=== PATIENT | male | born 1995 | race African-American/Black ===

== ENCOUNTER 2024-11-04 04:39 | Emergency (ER) | payer MEDICAID ==
[~2024-11-04] VITALS: Ht 175.3 cm; Wt 63.5 kg
[2024-11-04 05:01] VITALS: BP 102/77; RESP 16; TEMP 97.8; O2SAT 100
[2024-11-04 05:37] VITALS: PULSE 114
--- NOTE | 2024-11-04 05:40 | ED.PDOC ---
Musculoskeletal HPI Comments 29-YEAR-OLD MALE PRESENTS TO ER WITH COMPLAINTS OF BILATERAL LEG PAIN X3 WEEKS. PATIENT REPORTS HE HAS BEEN EXPERIENCING INTERMITTENT PAIN TO BILATERAL LEGS THAT STARTED AFTER DANCING THREE WEEKS AGO. HE REPORTS 3/10 BURNING PAIN TO BILATERAL LEGS. DENIES USE OF MEDICATIONS FOR CURRENT SYMPTOMS. PATIENT ID ESENTS TO ER AMBULATORY ON ARRIVAL, WITH STEADY GAIT, IN NO DISTRESS AND STATES THE MASSAGES DO TAKE AWAY HIS LEG PAIN. DENIES FEVER, SHORTNESS OF BREATH, CALF PAIN, SKIN CHANGES, FALLS/INJURY OR ANY FURTHER SYMPTOMS/COMPLAINTS Chief Complaint: Lower Extremity Time Seen by MD: 05:30 Primary Care Provider: BIPIN Reviewed Notes: Nurses Notes, Medications, Allergies Allergies: Coded Allergies: NO KNOWN ALLERGIES (Unverified , 01/10/10) Information Source: Patient Mode of Arrival: Ambulatory Past Medical History PAST MEDICAL HISTORY: Anxiety Surgical History: Denies all surgeries Family History Family History: Unknown Social History Smoker: Non-Smoker Alcohol: Denies ETOH Use Drugs: Denies Drug Use Lives In: Home Constitutional: denies: chills, diaphoresis, fatigue, fever, malaise, sweats, weakness, others EENTM: denies: blurred vision, double vision, ear bleeding, ear discharge, ear drainage, ear pain, ear ringing, eye pain, eye redness, hearing loss, mouth pain, mouth swelling, nasal discharge, nose bleeding, nose congestion, nose pain, photophobia, tearing, throat pain, throat swelling, voice changes, others Respiratory: denies: cough, hemoptysis, orthopnea, SOB at rest, shortness of breath, SOB with excertion, stridor, wheezing, others Cardiovascular: denies: chest pain, dizzy spells, diaphoresis, Dyspnea on exertion, edema, irregular heart beat, left arm pain, lightheadedness, palpitations, PND, syncope, others Gastrointestinal: denies: abdomen distended, abdominal pain, blood streaked bowels, constipated, diarrhea, dysphagia, difficulty swallowing, hematemesis, melena, nausea, poor appetite, poor fluid intake, rectal bleeding, rectal pain, vomiting, others Genitourinary: denies: burning, dysuria, flank pain, frequency, hematuria, incontinence, penile discharge, penile sore, pain, testicle pain, testicle swelling, urgency, others Neurological: denies: dizziness, fainting, headache, left sided numbness, left sided weakness, numbness, paresthesia, pre-existing deficit, right sided numbness, right sided weakness, seizure, speech problems, tingling, tremors, weakness, others Musculoskeletal: reports: others ( STATED IN HPI) Integumetry: denies: bruises, change in color, change in hair/nails, dryness, laceration, lesions, lumps, rash, wounds, others Allergic/Immunocompromised: denies: Difficulty Healing, Frequent Infections, Hives, Itching, others Hematologic/Lymphatic: denies: anemia, blood clots, easy bleeding, easy bruising, swollen glands, others Endocrine: denies: excessive hunger, excessive sweating, excessive thirst, excessive urination, flushing, intolerance to cold, intolerance to heat, unexplained weight gain, unexplained weight loss, others Psychiatric: denies: anxiety, bipolar disorder, depression, hopeless, panic disorder, schizophrenia, sleepless, suicidal, others Physical Exam General Appearance: No Apparent Distress HEENT: PERRL/EOMI Neck: Full Range of Motion, Non-Tender, Normal Respiratory: Chest Non-Tender, Lungs Clear, No Accessory Muscle Use, No Respiratory Distress, Normal Breath Sounds Cardiovascular: No Murmur, No Gallop, Regular Rate/Rhythm Breast Exam: Deferred Gastrointestinal: NOT DONE Genitalia: Deferred Pelvic: Deferred Rectal: Deferred Extremities: No calf tenderness, Normal capillary refill, Normal range of motion, No pedal edema Musculoskeletal : Extremity Location: Leg (NO TTP/SKIN CHANGES TO BILATERAL LEGS NOTED. GAIT INTACT WITHOUT ABNORMALITY) Neurologic: Alert, No Motor Deficits, Normal Affect, Normal Mood, No Sensory Deficits Cerebellar Function: Normal Reflexes: Normal Skin: Dry, Normal Color, Warm Peripheral Pulses: 2+ femoral (R), 2+ femoral (L), 2+ dorsalis pedis (R), 2+ do rsalis pedis (L), 2+ Radial (R), 2+ Radial (L), 2+ Brachial (R), 2+ Brachial (L) Lymphatic: No Adenopathy Was a procedure done? Was a procedure done?: No Sedation Sedation?: No Differential Diagnosis EXT Differential Diagnosis: Cellulitis, Deep Vein Thrombosis, Fracture, Neurovascular injury X-Ray, Labs, Meds, VS Vital Signs Date Time Temp Pulse Resp B/P (MAP) Pulse Ox O2 Delivery O2 Flow Rate FiO2 6/25/25 05:37 114 11/04/24 05:01 97.8 131 16 102/77 (85) 100 97.8 ADVISED TO DRINK PLENTY OF FLUIDS ADVISED TO FOLLOW UP WITH PCP IN 1-2 DAYS PATIENT VERBALIZED UNDERSTANDING AND AGREEABLE WITH CURRENT PLAN OF CARE ADVISED TO RETURN TO ER IMMEDIATELY IF SYMPTOMS WORSE Time of 1ST Reevaluation: 05:20 Reevaluation 1ST: N/A Patient Education/Counseling: Diagnosis, Treatment, Prognosis, Need For Follow Up Family Education/Counseling: No Family Present Departure 1 Departure Time of Disposition: 05:32 Impression: Primary Impression: Musculoskeletal pain of left lower extremity Additional Impression: Musculoskeletal pain of right lower extremity Disposition: 01 HOME / SELF CARE / HOMELESS Condition: Stable Discharged With: Self Critical Care Note Critical Care Time?: No Stability Stability form required: No Heart Score Heart Score: Heart Score Response (Comments) Value History N/A 0 EKG N/A 0 Age N/A 0 Risk Factors N/A 0 Troponin N/A 0 Total 0 FATOUMATA SANCHEZ Nov 04, 2024 05:40
== END 2024-11-04 06:00 | disposition home or self-care (01) ==
LOC: ER 04:39
DX: M79.604 Pain in right leg (principal); M79.605 Pain in left leg; M79.89 Other specified soft tissue disorders

== ENCOUNTER 2024-11-08 05:57 | Emergency (ER) | payer MEDICAID ==
[~2024-11-08] VITALS: Ht 177.8 cm; Wt 48.0 kg
--- NOTE | 2024-11-08 06:44 | ED.PDOC ---
History of Present Illness HPI Comments 29-year-old male presents with a chief complaint of neuropathy. Patient states that he is experiencing a burning sensation in his legs and feet bilaterally. Patient also reports that he is experiencing increase in urination and excessive thirst. Chief Complaint: Lower Extremity Time Seen by MD: 06:19 Primary Care Provider: BIPIN Azevedo Notes: Medications, Allergies Allergies: Coded Allergies: NO KNOWN ALLERGIES (Unverified , 01/10/10) Information Source: Patient Mode of Arrival: EMS Severity: Moderate Timing: Hours Duration: Since onset Prehospital treatment: Support Services Tech Past Medical History PAST MEDICAL HISTORY: Anxiety Surgical History: Denies all surgeries Family History Family History: Unknown Social History Smoker: Non-Smoker Alcohol: Heavy Drugs: Denies Drug Use Lives In: Home Constitutional: denies: chills, diaphoresis, fatigue, fever, malaise, sweats, weakness, others EENTM: denies: blurred vision, double vision, ear bleeding, ear discharge, ear drainage, ear pain, ear ringing, eye pain, eye redness, hearing loss, mouth pain, mouth swelling, nasal discharge, nose bleeding, nose congestion, nose pain, photophobia, tearing, throat pain, throat swelling, voice changes, others Respiratory: denies: cough, hemoptysis, orthopnea, SOB at rest, shortness of breath, SOB with excertion, stridor, wheezing, others Cardiovascular: denies: chest pain, dizzy spells, diaphoresis, Dyspnea on exertion, edema, irregular heart beat, left arm pain, lightheadedness, palpitations, PND, syncope, others Gastrointestinal: denies: abdomen distended, abdominal pain, blood streaked bowels, constipated, diarrhea, dysphagia, difficulty swallowing, hematemesis, melena, nausea, poor appetite, poor fluid intake, rectal bleeding, rectal pain, vomiting, others Genitourinary: denies: burning, dysuria, flank pain, frequency, hematuria, incontinence, penile discharge, penile sore, pain, testicle pain, testicle swelling, urgency, others Neurological: denies: dizziness, fainting, headache, left sided numbness, left sided weakness, numbness, paresthesia, pre-existing deficit, right sided numbness, right sided weakness, seizure, speech problems, tingling, tremors, weakness, others Musculoskeletal: reports: muscle pain; denies: back pain, gout, joint pain, joint swelling, muscle stiffness, neck pain, others Integumetry: denies: bruises, change in color, change in hair/nails, dryness, laceration, lesions, lumps, rash, wounds, others Allergic/Immunocompromised: denies: Difficulty Healing, Frequent Infections, Hives, Itching, others Hematologic/Lymphatic: denies: anemia, blood clots, easy bleeding, easy bruising, swollen glands, others Endocrine: denies: excessive hunger, excessive sweating, excessive thirst, excessive urination, flushing, intolerance to cold, intolerance to heat, unexplained weight gain, unexplained weight loss, others Psychiatric: denies: anxiety, bipolar disorder, depression, hopeless, panic disorder, schizophrenia, sleepless, suicidal, others All Other Systems: Reviewed and Negative Physical Exam General Appearance: Moderate Distress, Normal HEENT: Normal ENT Inspection, Pharynx Normal, TMs Normal Neck: Full Range of Motion, Non-Tender, Normal, Normal Inspection Respiratory: Chest Non-Tender, Lungs Clear, No Accessory Muscle Use, No Respiratory Distress, Normal Breath Sounds Cardiovascular: No Edema, No JVD, No Murmur, No Gallop, Normal Peripheral Pulses, Regular Rate/Rhythm Breast Exam: Deferred Gastrointestinal: No Organomegaly, Non Tender, No Pulsatile Mass, Normal Bowel Sounds, Soft Genitalia: Deferred Pelvic: Deferred Rectal: Deferred Extremities: No calf tenderness, Normal capillary refill, Normal inspection, Normal range of motion, Non-tender, No pedal edema Musculoskeletal : Apperance: Normal Neurologic: Alert, mri ct tech II-XII nml as Tested, No Motor Deficits, Normal Affect, Normal Mood, No Sensory Deficits Cerebellar Function: Normal Reflexes: Normal Skin: Dry, Normal Color, Warm Peripheral Pulses: 3+ Radial (R), 3+ Radial (L) Lymphatic: No Adenopathy Was a procedure done? Was a procedure done?: No Differential Dx Considerations may include: Alcohol abuse Dehydration X-Ray, Labs, Meds, VS Vital Signs Date Time Temp Pulse Resp B/P (MAP) Pulse Ox O2 Delivery O2 Flow Rate FiO2 11/08/24 06:05 98.5 112 16 114/78 (90) 99 98.5 Lab Test 11/08/24 06:40 Range/Units Sodium Level 139 136-145 mmol/L Potassium Level 2.5 *L 3.5-5.1 mmol/L Chloride Level 92 L 98-107 mmol/L Carbon Dioxide Level 22 20-31 mmol/L Anion Gap 25 H 5-15 Blood Urea Nitrogen 6 L 9-23 mg/dL Creatinine 0.71 0.700-1.30 mg/dL Glomerular Filtration Rate Calc 127 >90 mL/min BUN/Creatinine Ratio 8.5 L 10.0-20.0 Serum Glucose 102 74-106 mg/dL Calcium Level 8.8 8.7-10.4 mg/dL Plasma/Serum Blood Alcohol 315.7 H <10 mg/dL Patient alert. Alcohol abuse. Vitals stable. Saturation pristine on room air. Ambulating. No sign of any distress. No leg swelling. Heart rate on clinical assessment was within normal limits. Establish intravenous access. Was given fluids. Respiratory rate within normal limits. Counseled patient on effects of drinking for 15 minutes. Potassium is low. Was given potassium. Blood alcohol level elevated. Was told to follow up with his primary care physician. Was told to come back if there is any problem. Time of 1ST Reevaluation: 06:49 Reevaluation 1ST: Improved Patient Education/Counseling: Diagnosis, Treatment, Need For Follow Up Family Education/Counseling: No Family Present SEPSIS Sepsis Screen Date sepsis recognized/suspect: Nov 08, 2024 Time Sepsis recognized/suspect: 604 Recent Procedure: No Respiratory Rate >20: No Heart Rate >90: No Temp<36 C (96.8 F) or >38.3 C: No SBP <90 or MAP <65 mmHG: No New Acute Mental Status Change: No Is the patient on CPAP, BIPAP,: No Vital Signs Date Time Temp Pulse Resp B/P (MAP) Pulse Ox O2 Delivery O2 Flow Rate FiO2 11/08/24 06:05 98.5 112 16 114/78 (90) 99 98.5 Departure 1 Departure Time of Disposition: 06:52 Impression: Primary Impression: Hypokalemia Additional Impressions: Dehydration Alcohol abuse Disposition: 01 HOME / SELF CARE / HOMELESS Condition: Good Discharged With: Self Critical Care Note Critical Care Time?: No Stability Stability form required: No Heart Score Heart Score: Heart Score Response (Comments) Value History N/A 0 EKG N/A 0 Age N/A 0 Risk Factors N/A 0 Troponin N/A 0 Total 0 I personally scribed for CHANTALE BUCHANAN MD ([email or web address]) on 11/08/24 at 06:43. Electronically submitted by Prashanth Titus ([email or web address]). CHANTALE BUCHANAN MD Nov 08, 2024 06:43
[2024-11-08 07:12] LABS: Sodium 139 mmol/L (136-145)
[2024-11-08 07:13] LABS: Anion Gap 25 (5-15); Carbon Dioxide 22 mmol/L (20-31)
[2024-11-08 07:14] LABS: Calcium 8.8 mg/dL (8.7-10.4)
[2024-11-08 07:18] LABS: Glucose 102 mg/dL (74-106)
[2024-11-08 07:25] LABS: Chloride 92 mmol/L (98-107); Potassium 2.5 mmol/L (3.5-5.1)
[2024-11-08 07:29] LABS: BUN/Creatinine Ratio 8.5 (10.0-20.0); Blood Urea Nitrogen 6 mg/dL (9-23)
[2024-11-08 07:30] LABS: Blood Alcohol 315.7 mg/dL (<10)
[2024-11-08] MEDS: SODIUM CHLORIDE 0.9% 1,000 ML IV ONE (08:00)
[2024-11-08] MEDS: POTASSIUM EFFERVESENT TAB 25 MEQ PO ONE (08:00)
[2024-11-08 08:17] VITALS: BP 102/75; PULSE 123; RESP 16; TEMP 97.7; O2SAT 100
== END 2024-11-08 09:37 | disposition home or self-care (01) ==
LOC: ER 05:57 → EDBD 05:57 → ER 09:37
DX: E87.6 Hypokalemia (principal); E86.0 Dehydration; F10.10 Alcohol abuse, uncomplicated; F41.9 Anxiety disorder, unspecified; Y90.8 Blood alcohol level of 240 mg/100 ml or more
CPT/HCPCS: 36415; 80048; 80320; 96360; 99283; J7030

== ENCOUNTER 2024-11-15 02:12 | Emergency (ER) | payer MEDICAID ==
[~2024-11-15] VITALS: Ht 177.8 cm; Wt 63.7 kg
--- NOTE | 2024-11-15 02:42 | ED.PDOC ---
History of Present Illness HPI Comments 29-year-old male brought in by EMS complaining of ER bilateral foot pain. Patient states he has been having burning pain on the soles of both feet for the past 3 weeks. Patient states pain radiates to his lower legs especially when he lays down. Patient was seen here a week ago for similar complaints, diagnosed with hypokalemia and alcohol abuse. Patient admits to have been drinking alcohol again today. Patient states he has nausea and vomiting on a daily basis. He denies abdominal pain. Patient states he has been taking Tylenol and ibuprofen for the foot pain without relief. Chief Complaint: Lower Extremity Time Seen by MD: 02:41 Primary Care Provider: BIPIN Azevedo Notes: Veterinary X Ray Operator Notes Allergies: Coded Allergies: NO KNOWN ALLERGIES (Unverified , 01/10/10) Information Source: Patient Mode of Arrival: EMS Severity: Moderate Timing: Weeks Duration: Intermittent Past Medical History PAST MEDICAL HISTORY: Anxiety Surgical History: Denies all surgeries Family History Family History: Unknown Social History Smoker: Non-Smoker Alcohol: Heavy Drugs: Denies Drug Use Lives In: Home Constitutional: denies: chills, diaphoresis, fatigue, fever, malaise, sweats, weakness, others EENTM: denies: blurred vision, double vision, ear bleeding, ear discharge, ear drainage, ear pain, ear ringing, eye pain, eye redness, hearing loss, mouth pain, mouth swelling, nasal discharge, nose bleeding, nose congestion, nose pain, photophobia, tearing, throat pain, throat swelling, voice changes, others Respiratory: denies: cough, hemoptysis, orthopnea, SOB at rest, shortness of breath, SOB with excertion, stridor, wheezing, others Cardiovascular: denies: chest pain, dizzy spells, diaphoresis, Dyspnea on exertion, edema, irregular heart beat, left arm pain, lightheadedness, palpitations, PND, syncope, others Gastrointestinal: denies: abdomen distended, abdominal pain, blood streaked bowels, constipated, diarrhea, dysphagia, difficulty swallowing, hematemesis, melena, nausea, poor appetite, poor fluid intake, rectal bleeding, rectal pain, vomiting, others Genitourinary: denies: burning, dysuria, flank pain, frequency, hematuria, incontinence, penile discharge, penile sore, pain, testicle pain, testicle swelling, urgency, others Neurological: denies: dizziness, fainting, headache, left sided numbness, left sided weakness, numbness, paresthesia, pre-existing deficit, right sided numbness, right sided weakness, seizure, speech problems, tingling, tremors, weakness, others Musculoskeletal: reports: muscle pain (Bilateral leg pain), others (Burning pain soles of both feet); denies: back pain, gout, joint pain, joint swelling, muscle stiffness, neck pain Integumetry: denies: bruises, change in color, change in hair/nails, dryness, laceration, lesions, lumps, rash, wounds, others Allergic/Immunocompromised: denies: Difficulty Healing, Frequent Infections, Hives, Itching, others Hematologic/Lymphatic: denies: anemia, blood clots, easy bleeding, easy bruising, swollen glands, others Endocrine: denies: excessive hunger, excessive sweating, excessive thirst, excessive urination, flushing, intolerance to cold, intolerance to heat, unexplained weight gain, unexplained weight loss, others Psychiatric: denies: anxiety, bipolar disorder, depression, hopeless, panic disorder, schizophrenia, sleepless, suicidal, others Physical Exam General Appearance: No Apparent Distress HEENT: Other (Pupils and face symmetric. Moist mucous membranes.) Neck: Full Range of Motion, Normal Inspection Respiratory: Lungs Clear, No Accessory Muscle Use, No Respiratory Distress, Normal Breath Sounds Cardiovascular: No Edema, No JVD, Regular Rate/Rhythm Breast Exam: Deferred Gastrointestinal: Non Tender, Soft Genitalia: Deferred Pelvic: Deferred Rectal: Deferred Extremities: Normal inspection, Normal range of motion, Non-tender, No pedal edema Neurologic: Alert (Oriented x4), Normal Affect, Normal Mood, Other (Ambulatory) Cerebellar Function: NOT DONE Reflexes: NOT DONE Skin: Dry, Normal Color, Warm Peripheral Pulses: 2+ dorsalis pedis (R), 2+ dorsalis pedis (L) Lymphatic: NOT DONE Was a procedure done? Was a procedure done?: No Differential Dx Considerations may include: Neuropathy, musculoskeletal pain, infection, electrolyte imbalance, among others X-Ray, Labs, Meds, VS Vital Signs Date Time Temp Pulse Resp B/P (MAP) Pulse Ox O2 Delivery O2 Flow Rate FiO2 11/15/24 03:15 97.8 66 96 104/69 (81) 16 97.8 11/15/24 02:28 98.0 102 18 108/76 (87) 99 98.0 Lab Test 11/15/24 02:40 Range/Units White Blood Count 5.8 4.4-10.8 10^3/uL Red Blood Count 2.79 L 4.5-5.90 10^6/uL Hemoglobin 9.4 L 13.5-17.5 g/dL Hematocrit 27.9 L 41.0-53.0 % Mean Corpuscular Volume 100.1 H 80.0-100.0 fL Mean Corpuscular Hemoglobin 33.8 H 28.0-32.0 pg Mean Corpuscular Hemoglobin Concent 33.8 32.0-36.0 g/dL Red Cell Distribution Width 20.0 H 11.8-14.3 % Platelet Count 203 140-450 10^3/uL Mean Platelet Volume 9.1 6.9-10.8 fL Neutrophils (%) (Auto) 65.2 37.0-80.0 % Lymphocytes (%) (Auto) 18.5 10.0-50.0 % Monocytes (%) (Auto) 14.8 H 0.0-12.0 % Eosinophils (%) (Auto) 0.7 0.0-7.0 % Basophils (%) (Auto) 0.8 0.0-2.0 % Neutrophils # (Auto) 3.8 1.6-8.6 10 ^3/uL Lymphocytes # (Auto) 1.1 0.4-5.4 10 ^3/uL Monocytes # (Auto) 0.9 0-1.3 10 ^3/uL Eosinophils # (Auto) 0 0-0.8 10 ^3/uL Basophils # (Auto) 0 0-0.2 10 ^3/uL Nucleated Red Blood Cells 3.5 % Sodium Level 138 136-145 mmol/L Potassium Level 2.6 L 3.5-5.1 mmol/L Chloride Level 98 98-107 mmol/L Carbon Dioxide Level 12 #L 20-31 mmol/L Anion Gap 28 H 5-15 Blood Urea Nitrogen 8 L 9-23 mg/dL Creatinine 0.66 L 0.700-1.30 mg/dL Glomerular Filtration Rate Calc 130 >90 mL/min BUN/Creatinine Ratio 12.1 10.0-20.0 Serum Glucose 119 H 74-106 mg/dL Calcium Level 7.7 L 8.7-10.4 mg/dL Plasma/Serum Blood Alcohol 285.5 H <10 mg/dL Current Medications Medications (Trade) Dose Ordered Sig/Marcy Route Start Time Stop Time Status Last Admin Sodium Chloride 1,000 ml @ 1,000 mls/hr Q1H ONCE IV 11/15/24 02:45 11/15/24 03:44 DC 11/15/24 02:45 Ketorolac Tromethamine (Toradol Injection) 30 mg ONCE ONCE IV 11/15/24 02:45 11/15/24 02:46 DC 11/15/24 03:20 Gabapentin (Neurontin Capsule) 300 mg ONCE ONCE PO 11/15/24 02:45 11/15/24 02:46 DC 11/15/24 03:20 Ondansetron HCl (Zofran) 4 mg ONCE ONCE IV 11/15/24 02:45 11/15/24 02:46 DC 11/15/24 03:20 X-Ray, Labs, Meds, VS Comment 29-year-old male with a history of anxiety brought in by EMS complaining of nontraumatic burning bilateral foot pain radiating to his lower legs for the past 3 weeks Vitals remarkable for heart rate 102 Exam unremarkable Rhythm strip independently interpreted by me: Sinus tach, rate 102, no ectopy. CBC remarkable for mild anemia, basic metabolic panel remarkable for potassium 2.6, alcohol level 285.5 Patient treated with the following in the ED: 1 L 0.9 normal saline IV bolus, Toradol 30 mg IV, gabapentin 300 mg p.o., Zofran 4 mg IV, effervescent potassium 50 mEq p.o., K rider 20 mEq IV On re-evaluation, patient states pain has improved. Vitals were stable. Patient is stable for discharge with close outpatient follow-up with primary physician. Rx gabapentin, tramadol Time of 1ST Reevaluation: 02:36 Reevaluation 1ST: Unchanged Patient Education/Counseling: Diagnosis, Treatment Family Education/Counseling: No Family Present SEPSIS Sepsis Screen Date sepsis recognized/suspect: Nov 15, 2024 Time Sepsis recognized/suspect: 215 Recent Procedure: No On Antibiotic Therapy: No Respiratory Rate >20: No Heart Rate >90: Yes Temp<36 C (96.8 F) or >38.3 C: No SBP <90 or MAP <65 mmHG: No New Acute Mental Status Change: No Is the patient on CPAP, BIPAP,: No SEPSIS EXCLUSION NOTE: Sepsis Exclusion Note: Patient presents with SIRS criteria, but the SIRS response is attributed to [alcohol intoxication and/or pain ], not a suspected infection. Sepsis bundle is not initiated at this time, due to this reason. Further management will focus on the treatment of the above condition (s). Physician Orders Drug Screen (11/15/24 02:33) Potassium Effervesent Tab (Klor-Con/Ef) (11/15/24 03:45) Potassium Chl Rubio Kcl (11/15/24 03:45) Vital Signs Date Time Temp Pulse Resp B/P (MAP) Pulse Ox O2 Delivery O2 Flow Rate FiO2 11/15/24 03:15 97.8 66 96 104/69 (81) 16 97.8 11/15/24 02:28 98.0 102 18 108/76 (87) 99 98.0 Laboratory Tests Test 11/15/24 02:40 White Blood Count 5.8 10^3/uL (4.4-10.8) Medications Medications Dose Ordered Sig/Marcy Route Start Time Stop Time Status Last Admin Dose Admin Gabapentin 300 mg ONCE ONCE PO 11/15/24 02:45 11/15/24 02:46 DC 11/15/24 03:20 Ketorolac Tromethamine 30 mg ONCE ONCE IV 11/15/24 02:45 11/15/24 02:46 DC 11/15/24 03:20 Ondansetron HCl 4 mg ONCE ONCE IV 11/15/24 02:45 11/15/24 02:46 DC 11/15/24 03:20 Sodium Chloride 1,000 ml @ 1,000 mls/hr Q1H ONCE IV 11/15/24 02:45 11/15/24 03:44 DC 11/15/24 02:45 Departure 1 Departure Time of Disposition: 03:49 Impression: Primary Impression: Hypokalemia Additional Impressions: Alcohol intoxication Neuropathy Disposition: 01 HOME / SELF CARE / HOMELESS Condition: Stable Additional Instructions: Your blood tests showed low potassium. We have corrected this in the ER. I have prescribed medication for pain. Follow-up with your primary doctor in 1-2 days. Return to ER for persistent or worsening symptoms. e-Prescriptions Tramadol Hcl (Tramadol Hcl) 50 Mg Tab 50 MG PO Q6HP PRN, #30 TAB Prov: GENARO GUNTER MD 11/15/24 Gabapentin (Once-Daily) (Gabapentin) 300 Mg Tab 300 MG PO TID PRN, #30 TAB Prov: GENARO GUNTER MD 11/15/24 Discharged With: Self Critical Care Note Critical Care Time?: No Stability Stability form required: No Heart Score Heart Score: Heart Score Response (Comments) Value History N/A 0 EKG N/A 0 Age N/A 0 Risk Factors N/A 0 Troponin N/A 0 Total 0 I personally scribed for GENARO GUNTER MD ([email or web address]) on 11/15/24 at 02:42. Electronically submitted by Paul Muniz ([facility]). GENARO GUNTER MD Nov 15, 2024 02:42
[2024-11-15] MEDS: SODIUM CHLORIDE 0.9% 1,000 ML IV ONE (02:45)
[2024-11-15 02:51] LABS: Hematocrit 27.9 % (41.0-53.0); Hemoglobin 9.4 g/dL (13.5-17.5); Mean Corpuscular Hemoglobin 33.8 pg (28.0-32.0); Mean Corpuscular Volume 100.1 fL (80.0-100.0)
[2024-11-15 02:57] LABS: Nucleated Red Blood Cells % 3.5 %
[2024-11-15 03:00] LABS: Sodium 138 mmol/L (136-145)
[2024-11-15 03:01] LABS: Anion Gap 28 (5-15)
[2024-11-15 03:06] LABS: BUN/Creatinine Ratio 12.1 (10.0-20.0)
[2024-11-15] MEDS: KETOROLAC TROMETH 30 MG/ML 1ML VIAL IV ONE (03:20)
[2024-11-15] MEDS: GABAPENTIN 300 MG CAP PO ONE (03:20)
[2024-11-15] MEDS: ONDANSETRON HCL 4 MG/2 ML VIAL IV ONE (03:20)
[2024-11-15 03:26] LABS: Blood Urea Nitrogen 8 mg/dL (9-23); Calcium 7.7 mg/dL (8.7-10.4); Carbon Dioxide 12 mmol/L (20-31); Chloride 98 mmol/L (98-107); Glucose 119 mg/dL (74-106); Potassium 2.6 mmol/L (3.5-5.1)
[2024-11-15 03:49] VITALS: PULSE 66; RESP 16; O2SAT 96
[2024-11-15] MEDS ORDERED: TRAM50TA2 PO (03:51)
[2024-11-15] MEDS ORDERED: GABA300T4 PO (03:51)
[2024-11-15 04:10] VITALS: TEMP 98; O2SAT 100
[2024-11-15] MEDS: POTASSIUM CHL 20MEQ/100ML 100 ML IV ONE (04:30)
[2024-11-15] MEDS: POTASSIUM EFFERVESENT TAB 25 MEQ PO ONE (04:31)
[2024-11-15] MEDS: HYDROcodone-ACET 10/325MG TAB PO ONE (05:00)
[2024-11-15 06:10] VITALS: BP 127/91; PULSE 113; RESP 100; O2SAT 15
== END 2024-11-15 06:46 | disposition home or self-care (01) ==
LOC: ER 02:12 → EDBD 02:12 → ER 06:41
DX: E87.6 Hypokalemia (principal); F10.129 Alcohol abuse with intoxication, unspecified; G62.9 Polyneuropathy, unspecified; Y90.8 Blood alcohol level of 240 mg/100 ml or more; F41.9 Anxiety disorder, unspecified
CPT/HCPCS: 36415; 80048; 80320; 85025; 96361; 96365; 96366; 96375; 99285; J1885; J2405; J3480; J7030

== ENCOUNTER 2024-11-19 10:59 | Inpatient (IN) | payer MEDICAID ==
[~2024-11-19] VITALS: Ht 172.7 cm; Wt 77.8 kg
[~2024-11-19 10:59] MED LIST: GABA300T4 PO; TRAM50TA2 PO
--- NOTE | 2024-11-19 11:08 | ED.PDOC ---
Psychiatric HPI Comments HPI: This is a 29 year old male BIBA presenting to the ED with chief complaint of ETOH withdrawal and hallucinations. EMS reports that the patient's brother had called 911 due to the patient starting to experience visual hallucinations of people and objects along with shakiness and weakness today. Patient relays that his last drink of alcohol was about 4 hours ago and that is when symptom onset occurred. EMS states patient has been drinking vodka heavily every day for the past 2 years. EMS notes patient currently has a lazy eye and when the patient was questioned, he stated it happens sometimes when he is sobering up. Initial Vitals BP: 140/74 HR: 130 RR: 20 O2 Sat: 95% Temp: 98.5F Past Medical history: Anxiety, Prediabetes, Lazy eye Past Surgical history: None Medications: None Social History: Heavy ETOH use. Denies smoking and drug use. Allergies: NKDA REVIEW OF SYSTEMS: CONSTITUTIONAL: Denies acute: fever, diaphoresis, chills, HEAD: Denies acute: headache, photophobia Eyes: Denies acute: Double vision, vision loss, eye pain, eye discharge. EARS: Denies acute: tinnitus, hearing loss, ear discharge, ear pain, THROAT: Denies acute: sore throat, swelling, difficulty swallowing , pain with swallowing, change in voice. NECK: Denies acute: neck pain, neck swelling, stiff neck. HEART: Denies acute : chest pain, palpitations, LUNGS: Denies acute: SOB, wheezing, cough, hemoptysis ABDOMEN: Denies acute: abdominal pain, Nausea, Vomiting, diarrhea, melena , hematemesis, hematochezia SKIN: Denies acute: rash, redness, lesions, itchiness. EXTREMITIES: Denies acute: calf pain, numbness, tingling, weakness, denies pain in extremity. Denies acute: Low back pain. Neuro: Denies acute: focal neurological deficit, motor or sensory focal neurological deficit, tremors, seizure like activity, confusion, dizziness, change in mental status, loss of bowel or bladder function, cauda equina like symptoms. : Denies acute: dysuria, hematuria, flank pain, increase in urinary frequency. PSYCH: Denies acute: suicidal ideation, homicidal ideation. PHYSICAL EXAM: General: ---no-----acute distress, awake and alert. Head: normocephalic, atraumatic. Neck: supple, trachea is midline, no swelling. Throat: Normal phonation. Eyes:, no erythema, no purulent discharge, no proptosis, no icterus. Heart: regular tachycardia, no significant murmur appreciated. Lungs: no apparent respiratory distress, Able to speak in full sentences. No wheezing, no rhonchi, no crackles. No stridors Clear to auscultation bilaterally. Abdomen: non tender to palpation, non distended, soft, no guarding, no rebound, + bowel sounds. Neuro: Awake, Alert, oriented to name, self, situation, follows commands GCS=15. Speech is normal. Skin: no petechia, no purpura, no cyanosis, non-pale, not jaundice. Lower extremities: --no - Pitting edema no deformity, no focal swelling, no calf TTP. Makes eye contact. moves all four extremities. Face: no apparent facial droop. PERRLA, EOM-I however patient has lazy eyes at baseline. No nuchal rigidity, Kernig's sign, Brudzinski's sign, no meningeal signs. ED COURSE: DISCLAIMER: This medical document was created using an electronic medical record system with voice recognition software and computerized dictation system. Although this document has been carefully reviewed, there might still be some phonetic and typographical errors. Occasional wrong-word or "sound-alike" substitutions may have occurred due to the inherent limitations of voice recognition software. These areas are purely typographical due to imperfections of the software programs and do not reflect any compromise in the patient's medical care. Please read the chart carefully and recognize, using context, where these substitutions have occurred. Time Seen by MD: 11:05 Primary Care Provider: BIPIN Reviewed Notes: Medications, Allergies Information Source: Patient, Emergency Med Personnel Mode of Arrival: EMS Was a procedure done? Was a procedure done?: No Psych Differential Dx Suicidal Differential Dx: Alcohol Abuse, Anxiety, Bipolar Disorder, Conversion Disorder, Depression, Homicidal, Laceration, Panic Disorder, Personality Disorder, Schizoprenia, Substance Abuse Intoxication Differential Dx: Alcohol Withdraw Syndrome, Delerium Tremens, Hallucinations, Seizures, Anticholinergic Poisoning, CVA, Dehydration, Depres corinne, Drug-Induced Psychosis, Electrolyte Imbalance, Encephalitis, Encephalopathy, Hepatitis, Hyperthermia, Intoxication, Medical Noncompliance, Personality Disorder, Schizophrenia, Seizure Disorder, Substance Abuse Disorder, Thiamine Deficiency, Thyrotoxicosis X-Ray, Labs, Meds, VS Vital Signs Date Time Temp Pulse Resp B/P (MAP) Pulse Ox O2 Delivery O2 Flow Rate FiO2 11/19/24 16:00 120 18 130/100 (110) 100 11/19/24 16:00 126 11/19/24 14:00 110 21 118/91 (100) 100 11/19/24 12:00 98.4 112 18 126/88 (101) 98 98.4 11/19/24 12:00 112 18 98 Room Air* 0 21 11/19/24 11:13 98.5 130 20 140/74 (96) 95 98.5 Lab Test 11/19/24 13:14 11/19/24 11:10 Range/Units Lactic Acid Level 5.0 *H 3.5 *H 0.4-2.0 mmol/L White Blood Count 5.8 4.4-10.8 10^3/uL Red Blood Count 2.53 L 4.5-5.90 10^6/uL Hemoglobin 8.5 L 13.5-17.5 g/dL Hematocrit 24.9 #L 41.0-53.0 % Mean Corpuscular Volume 98.1 80.0-100.0 fL Mean Corpuscular Hemoglobin 33.5 H 28.0-32.0 pg Mean Corpuscular Hemoglobin Concent 34.2 32.0-36.0 g/dL Red Cell Distribution Width 21.0 H 11.8-14.3 % Platelet Count 248 140-450 10^3/uL Mean Platelet Volume 9.5 6.9-10.8 fL Neutrophils (%) (Auto) 37.0-80.0 % Lymphocytes (%) (Auto) 10.0-50.0 % Monocytes (%) (Auto) 0.0-12.0 % Basophils (%) (Auto) 0.0-2.0 % Neutrophils # (Auto) 1.6-8.6 10 ^3/uL Lymphocytes # (Auto) 0.4-5.4 10 ^3/uL Monocytes # (Auto) 0-1.3 10 ^3/uL Differential Total Cells Counted 100.0 100 Neutrophils % (Manual) 59 37.0-80.0 Band Neutrophils % (Manual) 1 Lymphocytes % (Manual) 23 10.0-50.0 Monocytes % (Manual) 17 H 0-12 Eosinophils % (Manual) 0 0-7 Basophils % (Manual) 0 0.0-2.0 Metamyelocytes % (manual) 0 Myelocytes % (Manual) 0 Promyelocytes % (Manual) 0 Blast Cells % (Manual) 0 Nucleated Red Blood Cells 14.0 % Reactive Lymphocytes 0 Platelet Estimate Adequate Polychromasia Slight Poikilocytosis (manual) Slight Anisocytosis (manual) Moderate Tear Drop Cells Few Sodium Level 137 136-145 mmol/L Potassium Level 2.8 L 3.5-5.1 mmol/L Chloride Level 101 98-107 mmol/L Carbon Dioxide Level 23 # 20-31 mmol/L Anion Gap 13 5-15 Blood Urea Nitrogen 12 9-23 mg/dL Creatinine 0.65 L 0.700-1.30 mg/dL Glomerular Filtration Rate Calc 131 >90 mL/min BUN/Creatinine Ratio 18.5 10.0-20.0 Serum Glucose 109 H 74-106 mg/dL Calcium Level 8.7 8.7-10.4 mg/dL Magnesium Level 1.0 L 1.6-2.6 mg/dL Total Bilirubin 2.1 H 0.2-1.0 mg/dL Aspartate Amino Transferase (AST) 299 H 13-40 U/L Alanine Aminotransferase (ALT) 81 H 7-40 U/L Alkaline Phosphatase 157 H 46-116 U/L Total Protein 5.9 5.7-8.2 g/dL Albumin 3.6 3.2-4.8 g/dL Plasma/Serum Blood Alcohol < 3.0 <10 mg/dL [address] [address] Ph: [phone] DIAGNOSTIC IMAGING Diagnostic Imaging Report : [id number] Signed PATIENT: J CARLOS RIOS ACCT: [id number] UNIT: [id number] : 1995 LOC: ER ROOM / BED: / AGE / SEX: 29 / M ADM STATUS: REG ER SERVICE 1102 ORDERING PHYSICIAN: CHARISSE MONTESINOS DO PROCEDURE(s): HWOCT - HEAD WITHOUT CONTRAST REASON: etoh, tachy, hallucinations ORDER NUMBER(s): [id number], ACCESSION NUMBER(s): [id number] CLINICAL INFORMATION: Tachycardia, hallucinations. TECHNIQUE: Axial imaging was obtained through the brain without contrast. Coronal and sagittal reformatted images were obtained, reviewed, and stored. Images were reviewed in brain and bone windows. All CT scans at this medical facility are performed using dose modulation techniques as appropriate to a performed exam including the following: Automated exposure control was utilized; adjustment of the MA and/or KV according to patient size; and use of iterative reconstruction technique. CTDIvol = 59.52 mGy DLP = 1171.46 mGy-cm COMPARISON: None FINDINGS: There is no acute intracranial hemorrhage. No mass effect or midline shift. The ventricles and sulci are within normal limits in size for age. Basal cisterns are patent. The calvarium is unremarkable. Mild mucosal thickening of the paranasal sinuses. Partially visualized retention cyst versus polyp in the left maxillary sinus. IMPRESSION: 1. No CT evidence of acute intracranial abnormality. 2. Nonacute findings as described above. ATED BY: ENRIQUE DE LOS SANTOS DO DICTATED DATE/TIME: 11/19/241220 SIGNED BY: ENRIQUE DE LOS SANTOS DO SIGNED DATE/TIME: 11/19/241220 CC: Time of 1ST Reevaluation: 12:05 Reevaluation 1ST: Unchanged Patient Education/Counseling: Diagnosis, Treatment Family Education/Counseling: No Family Present Comments MDM: patient presented with the above HPI.--alcohol withdrawal----workup was initiated. patient was found with the above mentioned diagnosis. the following medications were ordered: please refer to order lists of meds and tests obtained by myself Dr. Montesinos. Patient ED course and VS have been stabilized. Patient has been reassessed in the ED and remained in a stable condition. Pertinent incidental findings were discussed with the patient and/or family. Patient/family voices understanding and is agreeable with plan. Patient has been observed in the ED adequate length of time to insure improvement/stability. Escalation of care considered: Consideration of escalation to observation or admission Patient was ADMITTED to the medicine team for further evaluation and treatment of their presentation. All the reports of any imaging studies that were ordered by myself were reviewed by myself. Departure 1 Departure Time of Disposition: 12:12 Impression: Primary Impression: Alcohol abuse Additional Impressions: Hallucinations Anemia Elevated LFTs Hypokalemia Hypomagnesemia Disposition: ADMITTED INPATIENT Admit to: Tele Condition: Guarded e-Prescriptions Ferrous Sulfate (Iron) 325 Mg Tab 325 MG PO BID for 30 Days, #60 TAB Prov: LEROY SALAZAR POWER TOOL REPAIR TECHNICIAN 11/26/24 Thiamine Hcl (VITAMIN B-1) 100 Mg Tb 100 MG PO DAILY for 30 Days, #30 TAB Prov: LEROY SALAZAR POWER TOOL REPAIR TECHNICIAN 11/26/24 Discharged With: Self Critical Care Note Critical Care Time?: Yes (45 min-critical care time only) I personally scribed for CHARISSE MONTESINOS DO ([email or web address]) on 11/19/24 at 11:08. Electronically submitted by Tushar Chapin ([email or web address]). I personally scribed for CHARISSE MONTEISNOS DO ([email or web address]) on 11/19/24 at 11:57. Electronically submitted by Tushar Chapin ([email or web address]). CHARISSE MONTESINOS DO Nov 19, 2024 11:08
[2024-11-19 11:28] LABS: Hematocrit 24.9 % (41.0-53.0); Hemoglobin 8.5 g/dL (13.5-17.5); Mean Corpuscular Hemoglobin 33.5 pg (28.0-32.0); Mean Corpuscular Volume 98.1 fL (80.0-100.0)
[2024-11-19] MEDS: SODIUM CHLORIDE 0.9% 1,000 ML IV ONE ×3 (11:34→14:15)
[2024-11-19] MEDS: THIAMINE HCL 100 MG TAB PO ONE ×2 (11:35→16:48)
[2024-11-19 11:42] LABS: Alanine Aminotransferase 81 U/L (7-40); Albumin 3.6 g/dL (3.2-4.8); Alkaline Phosphatase 157 U/L (46-116); Anion Gap 13 (5-15); BUN/Creatinine Ratio 18.5 (10.0-20.0); Blood Urea Nitrogen 12 mg/dL (9-23); Calcium 8.7 mg/dL (8.7-10.4); Carbon Dioxide 23 mmol/L (20-31); Chloride 101 mmol/L (98-107); Glucose 109 mg/dL (74-106); Magnesium 1.0 mg/dL (1.6-2.6); Potassium 2.8 mmol/L (3.5-5.1); Sodium 137 mmol/L (136-145); Total Protein 5.9 g/dL (5.7-8.2)
[2024-11-19 11:43] LABS: Bilirubin, Total 2.1 mg/dL (0.2-1.0)
[2024-11-19 11:55] LABS: Lactic Acid w/Reflex 3.5 mmol/L (0.4-2.0)
[2024-11-19 12:00] VITALS: PULSE 112; RESP 18; O2SAT 98
[2024-11-19 12:05] LABS: Nucleated Red Blood Cells % 14.0 %; Total Cells Counted 100.0 (100)
[2024-11-19 12:06] LABS: Anisocytosis Moderate; Polychromasia Slight; Tear Drop Cells FEW
--- NOTE | 2024-11-19 12:24 | DVH ---
CLINICAL INFORMATION: Tachycardia, hallucinations. TECHNIQUE: Axial imaging was obtained through the brain without contrast. Coronal and sagittal reform atted images were obtained, reviewed, and stored. Images were reviewed in brain and bone windows. Al l CT scans at this medical facility are performed using dose modulation techniques as appropriate to a performed exam including the following: Automated exposure control was utilized; adjustment of the MA and/or KV according to patient size; and use of iterative reconstruction technique. CTDIvol = 59.5 2 mGy DLP = 1171.46 mGy-cm COMPARISON: None FINDINGS: There is no acute intracranial hemorrhage. No mass effect or midline shift. The ventricles and sulci are within normal limits in size for age. Basal cisterns are patent. The calvarium is unre markable. Mild mucosal thickening of the paranasal sinuses. Partially visualized retention cyst vers us polyp in the left maxillary sinus. IMPRESSION: 1. No CT evidence of acute intracranial abnormality. 2. Nonacute findings as described above.
[2024-11-19] MEDS: MAGNESIUM SULFATE 1GM/100ML 100 ML IV ONE (12:28)
[2024-11-19] MEDS: cefTRIAXone 1GM/50ML D5W 50 ML IV ONE (12:28)
[2024-11-19] MEDS: POTASSIUM CHL 20 Meq TABLET PO ONE (12:29)
[2024-11-19] MEDS: LORazepam 2MG/ML-1ML VIAL IV ONE ×2 (14:56→16:48)
[2024-11-19] MEDS ORDERED: ONDANSETRON HCL 4 MG/2 ML VIAL IV PRN (16:30)
[2024-11-19] MEDS ORDERED: NITROGLYCERIN 0.4 MG SL TAB SL PRN (16:30)
[2024-11-19] MEDS ORDERED: MORPHINE SULFATE INJ 2 MG/ml SYRG IV PRN (16:30)
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
[2024-11-19] MEDS: FOLIC ACID 1 MG TAB PO ONE (16:49)
[2024-11-19] MEDS: MULTIPLE VITAMIN TAB PO ONE (16:49)
[2024-11-19] MEDS: cefTRIAXone 1GM/50ML D5W 50 ML IV SCH (16:56)
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
[2024-11-19] MEDS: SODIUM CHLORIDE 0.9% 1,000 ML IV SCH (17:30)
[2024-11-19 17:37] LABS: Magnesium 1.0 mg/dL (1.6-2.6)
[2024-11-19 20:05] VITALS: PULSE 78; RESP 18; O2SAT 97
[2024-11-19] MEDS: LORazepam 2MG/ML-1ML VIAL IV SCH (20:38)
--- NOTE | 2024-11-19 21:29 | DVH ---
CHEST RADIOGRAPH Indication: r/o pna Technique: Single frontal view of the chest was obtained Comparison: None FINDINGS: Lines and Tubes: None Lungs: No focal consolidation. Bronchovascular crowding due to low lung volumes. Mild elevation of th e right hemidiaphragm. Pleura: No effusion. No pneumothorax. Cardiomediastinal contours: Unremarkable Bones: No acute osseous abnormality. IMPRESSION: No acute cardiopulmonary disease.
--- NOTE | 2024-11-19 21:31 | DVH ---
Exam: CT CT AB PEL WO CON-NO ORAL OR IV History: r/o pancreatitis Comparison Study: None TECHNIQUE: Multidetector CT of the abdomen and pelvis was performed from lung bases to pubic symphysi s. Imaging was performed without IV contrast. Axial, coronal, and sagittal multiplanar reformats were obtained from the axial data set by the technologist. RADIATION DOSE: CTDI vol 11.29 mGy. DLP 721.12 mGy.cm Findings: Limited evaluation of the solid organs in the absence of IV contrast. Evaluation is also degraded by motion artifact. Liver: Hepatomegaly and hepatic steatosis. Spleen: Unremarkable. Pancreas: Unremarkable. Gallbladder: Unremarkable. Adrenals: Unremarkable Kidneys: There is mild ctnf-liebnzq-cgan-right perinephric stranding. No hydronephrosis. Pelvic Viscera: Unremarkable. Vasculature: Unremarkable. Retroperitoneum: Shotty retroperitoneal nodes. No ascites. Bowel: No bowel obstruction. The appendix is normal. There is mild stranding surrounding the ascendin g colon. Musculoskeletal: Unremarkable. Soft tissues: Unremarkable Lungs: Basilar atelectasis/scarring. Impression: 1. Suboptimal evaluation given motion artifact and lack of IV contrast. Within this limitation, no CT evidence of pancreatitis. 2. Mild nonspecific jhih-icculvc-yfpn-right perinephric stranding. Pyelonephritis cannot be excluded in the appropriate clinical setting. 3. Mild nonspecific stranding adjacent to the ascending colon without definite wall thickening. An el ement of colitis cannot be excluded in the appropriate clinical setting. 4. Hepatomegaly and hepatic steatosis.
[2024-11-20 07:43] LABS: Albumin 3.3 g/dL (3.2-4.8); Anion Gap 14 (5-15); BUN/Creatinine Ratio 18.6 (10.0-20.0); Blood Urea Nitrogen 11 mg/dL (9-23); Carbon Dioxide 22 mmol/L (20-31); Chloride 104 mmol/L (98-107); Glucose 85 mg/dL (74-106); Sodium 140 mmol/L (136-145)
[2024-11-20 07:48] LABS: Hematocrit 21.9 % (41.0-53.0); Hemoglobin 7.5 g/dL (13.5-17.5); Mean Corpuscular Hemoglobin 33.9 pg (28.0-32.0); Mean Corpuscular Volume 99.4 fL (80.0-100.0); Nucleated Red Blood Cells % 15.8 %
[2024-11-20 07:49] LABS: Alanine Aminotransferase 67 U/L (7-40); Alkaline Phosphatase 133 U/L (46-116); Bilirubin, Total 1.5 mg/dL (0.2-1.0); Calcium 8.6 mg/dL (8.7-10.4); Total Protein 5.7 g/dL (5.7-8.2)
[2024-11-20 07:53] LABS: Potassium 2.5 mmol/L (3.5-5.1)
[2024-11-20 09:01] VITALS: PULSE 112; PULSE 78; RESP 18; RESP 22; O2SAT 97
[2024-11-20] MEDS: SOD CHL 0.9%/ KCL 20MEQ 1,000 ML IV SCH (10:27)
[2024-11-20] MEDS: POTASSIUM CHL 20 Meq TABLET PO ONE (10:28)
[2024-11-20] MEDS: FOLIC ACID 1 MG TAB PO SCH (10:29)
[2024-11-20] MEDS: MULTIPLE VITAMIN TAB PO SCH (10:35)
[2024-11-20] MEDS: THIAMINE HCL 100 MG TAB PO SCH (10:35)
[2024-11-20 11:05] LABS: Urine Budding Yeast OCCASIONAL /hpf (None Seen); Urine Protein, UAD 1+ (Negative)
[2024-11-20 11:11] LABS: Amphetamine Screen, Urine Neg (NEGATIVE); Benzodiazephine Screen, Urine Pos (NEGATIVE)
[2024-11-20 11:12] LABS: Barbiturate Scree,Urine Neg (NEGATIVE); Cannabinoid Screen, Urine Neg (NEGATIVE); Cocaine Screen, Urine Neg (NEGATIVE); Opiate Scree,Urine Neg (NEGATIVE); Phencyclidine Screen, Urine Neg (NEGATIVE)
[2024-11-20 14:33] LABS: Iron 145.0 ug/dL (65-175)
[2024-11-20 14:38] LABS: Total Iron Binding Capacity 220.0 ug/dL (250-425)
[2024-11-20] MEDS: MAGNESIUM SULFATE 1GM/100ML 100 ML IV SCH ×2 (15:53→20:00)
--- NOTE | 2024-11-20 16:15 | DVHPN2 ---
Subjective Clinically stable. Patient is slow to answer questions with poor historian. Changes from previous H/P or p: No Changes Genitourinary: Other (Testicular pain left side) Objective Vitals Vital Signs Date Time Temp Pulse Resp B/P (MAP) Pulse Ox O2 Delivery O2 Flow Rate FiO2 11/20/24 15:00 108 18 135/108 (117) 99 11/20/24 09:01 Room Air* 0 21 11/20/24 07:30 97.9 97.9 Intake/Output Intake and Output 11/20/24 07:00 Intake Total 300 ml Balance 300 ml Intake IV Total 300 ml Exam Alert awake. Oriented to place and person. Otherwise unable to give much reliable history. HEENT pupils equal round react to light. Neck supple no JVD. Heart regular rate and rhythm S1-S2. Lungs fair air movement with poor inspiratory effort no rales wheezes. Abdomen soft nontender positive bowel sounds. Extremities no edema positive pulses. Neurologically no gross focal deficits noted. Medications Current Medications Medications Dose Ordered Sig/Marcy Route Start Time Stop Time Status Last Admin Dose Admin Ondansetron HCl 4 mg Q4HP PRN IV 11/19/24 16:30 Acetaminophen 650 mg Q6HP PRN PO 11/19/24 16:30 Nitroglycerin 0.4 mg Q5MINP PRN SL 11/19/24 16:30 Morphine Sulfate 2 mg Q30M PRN IV 11/19/24 16:30 Thiamine HCl 100 mg DAILY PO 11/20/24 10:00 11/20/24 10:35 100 MG Folic Acid 1 mg DAILY PO 11/20/24 10:00 11/20/24 10:29 1 MG Multivitamins 1 tab DAILY PO 11/20/24 10:00 11/20/24 10:35 1 TAB Lorazepam 1 mg Q4H IV 11/19/24 16:30 11/20/24 11:29 1 MG Ceftriaxone Sodium 50 ml @ 100 mls/hr DAILY@09 IV 11/19/24 16:30 11/20/24 10:27 100 MLS/HR Potassium Chloride/Sodium Chloride 1,000 ml @ 75 mls/hr [id number] IV 11/20/24 09:00 11/20/24 10:27 75 MLS/HR Magnesium Oxide 800 mg BID PO 11/20/24 22:00 Magnesium Sulfate/ Dextrose 100 ml @ 100 mls/hr Q1HR IV 11/20/24 15:00 11/20/24 16:59 11/20/24 15:53 100 MLS/HR Pantoprazole Sodium 40 mg BID IV 11/20/24 22:00 Laboratory Results Laboratory Tests 11/20/24 07:03 11/20/24 13:55 Chemistry Test 11/19/24 17:03 11/20/24 07:03 Magnesium Level 1.0 mg/dL (1.6-2.6) L Albumin 3.3 g/dL (3.2-4.8) Calcium Level 8.6 mg/dL (8.7-10.4) L Total Protein 5.7 g/dL (5.7-8.2) LFT Test 11/20/24 07:03 Alanine Aminotransferase (ALT) 67 U/L (7-40) H Alkaline Phosphatase 133 U/L (46-116) H Aspartate Amino Transferase (AST) 216 U/L (13-40) H Total Bilirubin 1.5 mg/dL (0.2-1.0) H Urinalysis Test 11/20/24 12:17 Urine Color Yellow (Yellow) Urine Clarity Clear (Clear) Urine pH 6.0 (5.0-9.0) Urine Specific [place] 1.031 (1.001-1.035) Urine Protein 1+ (Negative) H Urine Ketones 1+ (Negative) H Urine Blood Negative /uL (Negative) Urine Nitrite Negative (Negative) Urine Bilirubin 1+ (Negative) Urine Urobilinogen 4 mg/dL (Negative) H Urine Leukocyte Esterase Negative /uL (Negative) Urine RBC 1 /hpf (0 - 3) Urine Microscopic WBC 3 /HPF (0-3) Urine Squamous Epithelial Cells None seen /hpf (<5) Urine Bacteria None seen /hpf (None Seen) Urine Mucus Few (None Seen) Urine Yeast (Budding) Occasional /hpf (None Urine Glucose Normal mg/dL (Normal) Assessment/Plan Assessment/Plan Etiology for his decreased responsiveness/alertness is unclear. However per family patient has significant history of alcohol use and apparently gets this way when he goes into withdrawals according to them. However his alcohol level in the hospitalist negative. It is unclear when was his last drink. Continue alcohol withdrawal protocol as needed. Continue IV fluids. Continue rest of supportive care and treatment. Further clinical management per clinical course. It is unclear patient has any history of withdrawal seizures. Discussed with the nurse regarding care plan at bedside. Plan discussed with: Patient, Other My Orders Orders - ELIJAH CLAUDIO MD Procedure Category Date Status Time Magnesium Oxide PHA 11/20/24 In Process Tablet (Mag-Ox Tablet) 22:00 Magnesium Sulfate PHA 11/20/24 In Process 1gm/100ml 15:00 Comprehensive LAB 11/21/24 Verified Metabolic Panel 04:00 Complete Blood Count LAB 11/21/24 Verified 04:00 Magnesium LAB 11/21/24 Verified 04:00 Stool Occult Blood LAB 11/20/24 Logged 14:06 * [facility] Boat Loader CONS 11/20/24 Transmitted 14:06 Pantoprazole PHA 11/20/24 In Process (Protonix) 22:00 Problem List: (1) Alcohol abuse (2) Hypokalemia (3) Elevated LFTs (4) Dehydration Date of Service: Nov 20, 2024 Billing Provider: ELIJAH CLAUDIO MD Common Visit Codes: [id number] INP/OBS CARE(MOD) ELIJAH CLAUDIO MD Nov 20, 2024 16:15
[2024-11-20 17:30] VITALS: BP 126/80; PULSE 100; RESP 18; TEMP 98; O2SAT 96
[2024-11-20 18:00] VITALS: BP 134/101; PULSE 108; RESP 16; TEMP 98.4; O2SAT 100
[2024-11-20] MEDS: LORazepam 2MG/ML-1ML VIAL IV PRN (19:49)
[2024-11-20 20:00] VITALS: PULSE 120; PULSE 126; RESP 18
[2024-11-20 21:00] VITALS: BP 114/86; PULSE 114; RESP 20; TEMP 98.1; O2SAT 99
[2024-11-20] MEDS: PANTOPRAZOLE 40 MG/10 ML VIAL INJ IV SCH (21:20)
[2024-11-20] MEDS: MAGNESIUM OXIDE 400 MG TAB PO SCH (21:20)
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
[2024-11-21] VITALS (8 sets, daily range): BP systolic 120–136; BP diastolic 80–96; PULSE 98–129; RESP 18–22; TEMP 98–98.3; O2SAT 95–100
[2024-11-21] MEDS: ACETAMINOPHEN 325 MG TAB PO PRN (00:56)
--- NOTE | 2024-11-21 06:22 | ECG ---
[facility] Test Date: 2024-11-21 Test Time: 05:54:15 Pat Name: J CARLOS RIOS Department: Respiratoy Room: 0219T A Gender: M [employer] Rep[employer]r: : 1995 Requested By: ELIJAH CLAUDIO Order Number: [id number] Reading MD: Tereso Saldaña Measurements Intervals [place] Rate: 118 P: 0 RI: 59 QRS: -9 QRSD: 104 T: -6 QT: 346 QTc: 485 Interpretive Statements Sinus tachycardia Borderline repolarization abnormality Borderline prolonged QT interval Electronically Signed On 11-23-2024 13:24:47 PDT by Tereso Saldaña Please click the below link to view image of tracing.
[2024-11-21 07:49] LABS: Anion Gap 10 (5-15); BUN/Creatinine Ratio 13.6 (10.0-20.0); Carbon Dioxide 23 mmol/L (20-31); Chloride 102 mmol/L (98-107); Glucose 104 mg/dL (74-106)
[2024-11-21 07:50] LABS: Hemoglobin 7.7 g/dL (13.5-17.5)
[2024-11-21 07:53] LABS: Alanine Aminotransferase 54 U/L (7-40); Albumin 3.1 g/dL (3.2-4.8); Alkaline Phosphatase 117 U/L (46-116); Blood Urea Nitrogen 8 mg/dL (9-23); Calcium 8.6 mg/dL (8.7-10.4); Hematocrit 22.8 % (41.0-53.0); Mean Corpuscular Hemoglobin 34.3 pg (28.0-32.0); Mean Corpuscular Volume 101.3 fL (80.0-100.0); Potassium 2.9 mmol/L (3.5-5.1); Sodium 135 mmol/L (136-145); Total Protein 5.4 g/dL (5.7-8.2)
[2024-11-21 07:55] LABS: Magnesium 1.4 mg/dL (1.6-2.6)
[2024-11-21 07:58] LABS: Bilirubin, Total 1.2 mg/dL (0.2-1.0)
[2024-11-21 08:06] LABS: Nucleated Red Blood Cells % 17.8 %
[2024-11-21] MEDS: POTASSIUM CHLORIDE 20 MEQ, LIDOCAINE 1% (LOCAL ANESTH.) 2 ML in SODIUM CHL 0.9% 100 ML IV ONE (10:15)
[2024-11-21] MEDS: MAGNESIUM SULFATE 1GM/100ML 100 ML IV SCH (12:00)
[2024-11-21] MEDS: POTASSIUM CHL 20 Meq TABLET PO SCH (12:15)
--- NOTE | 2024-11-21 13:22 | DVHPN2 ---
Subjective Clinically stable. Patient is slow to answer questions with poor historian. Apparently did not sleep much overnight. Changes from previous H/P or p: No Changes Genitourinary: Other (Testicular pain left side) Objective Vitals Vital Signs Date Time Temp Pulse Resp B/P (MAP) Pulse Ox O2 Delivery O2 Flow Rate FiO2 11/21/24 12:17 98.0 104 20 136/81 (99) 95 98.0 11/20/24 20:00 Room Air* 0 21 Intake/Output Intake and Output 11/21/24 07:00 Intake Total 2615 ml Output Total 300 ml Balance 2315 ml Intake Oral 1340 ml IV Total 1275 ml Output Urine Total 300 ml # Voids 1 Exam Alert awake. Oriented to place and person. Otherwise unable to give much reliable history. HEENT pupils equal round react to light. Neck supple no JVD. Heart regular rate and rhythm S1-S2. Lungs fair air movement with poor inspiratory effort no rales wheezes. Abdomen soft nontender positive bowel sounds. Extremities no edema positive pulses. Neurologically no gross focal deficits noted. Medications Current Medications Medications Dose Ordered Sig/Marcy Route Start Time Stop Time Status Last Admin Dose Admin Ondansetron HCl 4 mg Q4HP PRN IV 11/19/24 16:30 Acetaminophen 650 mg Q6HP PRN PO 11/19/24 16:30 11/21/24 00:56 650 MG Nitroglycerin 0.4 mg Q5MINP PRN SL 11/19/24 16:30 Morphine Sulfate 2 mg Q30M PRN IV 11/19/24 16:30 Thiamine HCl 100 mg DAILY PO 11/20/24 10:00 11/21/24 09:26 100 MG Folic Acid 1 mg DAILY PO 11/20/24 10:00 11/21/24 09:26 1 MG Multivitamins 1 tab DAILY PO 11/20/24 10:00 11/21/24 09:26 1 TAB Ceftriaxone Sodium 50 ml @ 100 mls/hr DAILY@09 IV 11/19/24 16:30 11/21/24 09:25 100 MLS/HR Potassium Chloride/Sodium Chloride 1,000 ml @ 75 mls/hr [id number] IV 11/20/24 09:00 11/21/24 03:40 75 MLS/HR Pantoprazole Sodium 40 mg BID IV 11/20/24 22:00 11/21/24 09:26 40 MG Lorazepam 1 mg Q2HP PRN IV 11/20/24 16:15 11/21/24 12:50 1 MG Zolpidem Tartrate 10 mg HS PO 11/21/24 22:00 Magnesium Oxide 400 mg BID PO 11/21/24 22:00 Laboratory Results Laboratory Tests 11/21/24 06:29 Chemistry Test 11/21/24 06:29 Albumin 3.1 g/dL (3.2-4.8) L Calcium Level 8.6 mg/dL (8.7-10.4) L Magnesium Level 1.4 mg/dL (1.6-2.6) L Total Protein 5.4 g/dL (5.7-8.2) L LFT Test 11/21/24 06:29 Alanine Aminotransferase (ALT) 54 U/L (7-40) H Alkaline Phosphatase 117 U/L (46-116) H Aspartate Amino Transferase (AST) 128 U/L (13-40) H Total Bilirubin 1.2 mg/dL (0.2-1.0) H HgA1c, TSH Test 11/20/24 13:55 Thyroid Stimulating Hormone (TSH) 1.77 uIU/mL (0.55-4.78) Urinalysis Test 11/20/24 12:17 Urine Color Yellow (Yellow) Urine Clarity Clear (Clear) Urine pH 6.0 (5.0-9.0) Urine Specific [place] 1.031 (1.001-1.035) Urine Protein 1+ (Negative) H Urine Ketones 1+ (Negative) H Urine Blood Negative /uL (Negative) Urine Nitrite Negative (Negative) Urine Bilirubin 1+ (Negative) Urine Urobilinogen 4 mg/dL (Negative) H Urine Leukocyte Esterase Negative /uL (Negative) Urine RBC 1 /hpf (0 - 3) Urine Microscopic WBC 3 /HPF (0-3) Urine Squamous Epithelial Cells None seen /hpf (<5) Urine Bacteria None seen /hpf (None Seen) Urine Mucus Few (None Seen) Urine Yeast (Budding) Occasional /hpf (None Urine Glucose Normal mg/dL (Normal) Assessment/Plan Assessment/Plan We will add sleeping pill at night given he is not getting enough rest. Once his mentation is improves more consider tele psych evaluation tomorrow. Meantime continue present management as he is on. He is encouraged activity and ambulation. Discussed with the nurse regarding care plan. Plan discussed with: Patient, Other My Orders Orders - ELIJAH CLAUDIO MD Procedure Category Date Status Time Stool Occult Blood LAB 11/20/24 Logged 14:06 * [facility] [employer] Installation Specialist CONS 11/20/24 Transmitted 14:06 Pantoprazole PHA 11/20/24 In Process (Protonix) 22:00 Lorazepam 2mg/Ml Inj PHA 11/20/24 In Process (Ativan Inj) 16:15 * Provider Enrollment Specialist CONS 11/20/24 Transmitted Consult Initiate Vte JODI 11/20/24 In Process Prophylaxis 20:19 Zolpidem Tartrate PHA 11/21/24 In Process (Ambien) 22:00 Magnesium Oxide PHA 11/21/24 In Process Tablet (Mag-Ox Tablet) 22:00 Basic Metabolic Panel LAB 11/22/24 Verified 04:00 Magnesium LAB 11/22/24 Verified 04:00 Pt Request For Service PT 11/21/24 Logged 10:12 Ambulate Every 4hours JODI 11/21/24 In Process 10:12 Problem List: (1) Elevated LFTs (2) Hypokalemia (3) Alcohol abuse (4) Dehydration (5) Hallucinations Date of Service: Nov 21, 2024 Billing Provider: ELIJAH CLAUDIO MD Common Visit Codes: [id number] INP/OBS CARE(MOD) ELIJAH CLAUDIO MD Nov 21, 2024 13:22
[2024-11-21] MEDS: ZOLPIDEM TARTRATE 5 MG TAB PO SCH (21:22)
[2024-11-21] MEDS: MAGNESIUM OXIDE 400 MG TAB PO SCH (21:22)
--- NOTE | 2024-11-21 22:43 | DVHPN2 ---
Progress Note - Dictate Date Seen: Nov 21, 2024 Medical Necessity Reason Pt with a Central, PICC or Fol: No Subjective Patient complaining of neuropathic type of pain with burning under his feet He has mild pedal edema There was no nausea vomiting no hematemesis no bright red blood per rectum or melena Liver enzymes are trending down and lactic acid is resolving vital signs Vital Sign Date Time Temp Pulse Resp B/P (MAP) Pulse Ox O2 Delivery O2 Flow Rate FiO2 11/21/24 21:00 98.0 117 20 124/96 (105) 100 98.0 11/21/24 08:00 Room Air* 0 21 Total Intake and Output 11/20/24 11/20/24 11/21/24 15:00 23:00 07:00 Intake Total 50 ml 100 ml 2465 ml Output Total 300 ml Balance 50 ml 100 ml 2165 ml medications Current Medications Medications Dose Ordered Sig/Marcy Route Start Time Stop Time Status Last Admin Dose Admin Ondansetron HCl 4 mg Q4HP PRN IV 11/19/24 16:30 Acetaminophen 650 mg Q6HP PRN PO 11/19/24 16:30 11/21/24 00:56 650 MG Nitroglycerin 0.4 mg Q5MINP PRN SL 11/19/24 16:30 Morphine Sulfate 2 mg Q30M PRN IV 11/19/24 16:30 Thiamine HCl 100 mg DAILY PO 11/20/24 10:00 11/21/24 09:26 100 MG Folic Acid 1 mg DAILY PO 11/20/24 10:00 11/21/24 09:26 1 MG Multivitamins 1 tab DAILY PO 11/20/24 10:00 11/21/24 09:26 1 TAB Ceftriaxone Sodium 50 ml @ 100 mls/hr DAILY@09 IV 11/19/24 16:30 11/21/24 09:25 100 MLS/HR Potassium Chloride/Sodium Chloride 1,000 ml @ 75 mls/hr [id number] IV 11/20/24 09:00 11/21/24 03:40 75 MLS/HR Pantoprazole Sodium 40 mg BID IV 11/20/24 22:00 11/21/24 21:21 40 MG Lorazepam 1 mg Q2HP PRN IV 11/20/24 16:15 11/21/24 21:22 1 MG Zolpidem Tartrate 10 mg HS PO 11/21/24 22:00 11/21/24 21:22 10 MG Magnesium Oxide 400 mg BID PO 11/21/24 22:00 11/21/24 21:22 400 MG objective Alert awake. Oriented to place and person HEENT pupils equal round react to light. Neck supple no JVD. Heart regular rate and rhythm S1-S2. Lungs fair air movement with poor inspiratory effort no rales wheezes. Abdomen soft nontender positive bowel sounds. Extremities no edema positive pulses. Neurologically no gross focal deficits noted. laboratory and microbiology Laboratory Tests 11/21/24 06:29 Test 11/21/24 06:29 Range/Units Serum Glucose 104 74-106 mg/dL Problems(with codes): (1) Dehydration (2) Alcohol abuse (3) Elevated LFTs (4) Anemia (5) Neuropathy (6) Alcohol intoxication Prognosis Plan Monitor his labs, liver enzymes trending down likely related to alcoholic hepatitis Pain control and vitamin supplementation including thiamine folic acid and vitamin-B I would like to get a hemochromatosis profile on this patient upon discharge Discontinue alcohol ; check PT INR in a.m. for risk stratification Outpatient follow up in GI Services ; check hepatitis pressure tester for alcohol withdrawal and monitor labs Plan discussed with: Patient, Other (Nurse) RONALDO ERNANDEZ MD Nov 21, 2024 22:43
[2024-11-22] VITALS (8 sets, daily range): BP systolic 115–150; BP diastolic 90–110; PULSE 63–124; RESP 19–20; TEMP 97.5–98.3; O2SAT 94–100
[2024-11-22 07:03] LABS: INR 1.09 (0.9-1.15); Prothrombin Time 11.5 sec (9.3-11.8)
[2024-11-22 07:04] LABS: Chloride 105 mmol/L (98-107); Sodium 140 mmol/L (136-145)
[2024-11-22 07:05] LABS: Anion Gap 12 (5-15); Carbon Dioxide 23 mmol/L (20-31)
[2024-11-22 07:10] LABS: Glucose 88 mg/dL (74-106); Magnesium 1.7 mg/dL (1.6-2.6)
[2024-11-22 07:15] LABS: Blood Urea Nitrogen 6 mg/dL (9-23); Calcium 8.5 mg/dL (8.7-10.4); Potassium 3.4 mmol/L (3.5-5.1)
[2024-11-22 07:28] LABS: BUN/Creatinine Ratio 12.0 (10.0-20.0)
[2024-11-22] MEDS: POTASSIUM CHL 20 Meq TABLET PO ONE (10:16)
[2024-11-22] MEDS: FUROSEMIDE 20 MG/2 ML VIAL IV ONE (12:00)
--- NOTE | 2024-11-22 12:50 | DVH ---
Bilateral lower extremity venous duplex Clinical History: foot swelling/pain Comparison: None Technique: Duplex doppler evaluation of the deep venous systems of both lower extremities from the common femora l veins to the popliteal veins including color doppler and spectral/pulsed waveform analysis was perf ormed. Findings: RIGHT SIDE: The common femoral vein demonstrates appropriate compressibility and waveform variability. There is compressibility/patency of the great saphenous vein at the proximal thigh. The femoral vein demonstrates appropriate compressibility and waveform variability. The deep femoral vein demonstrates appropriate compressibility and waveform variability. The popliteal vein demonstrates appropriate compressibility and waveform variability. There is normal compressibility at the tibioperoneal trunk. LEFT SIDE: The common femoral vein demonstrates appropriate compressibility and waveform variability. There is compressibility/patency of the great saphenous vein at the proximal thigh. The femoral vein demonstrates appropriate compressibility and waveform variability. The deep femoral vein demonstrates appropriate compressibility and waveform variability. The popliteal vein demonstrates appropriate compressibility and waveform variability. There is normal compressibility at the tibioperoneal trunk. Impression: 1. No right or left femoropopliteal venous thrombosis.
--- NOTE | 2024-11-22 13:32 | DVHPN2 ---
Subjective More alert and awake. However still intermittently agitated and confused per nurse. Apparently he pulled his IV line out. Changes from previous H/P or p: No Changes Genitourinary: Other (Testicular pain left side) Objective Vitals Vital Signs Date Time Temp Pulse Resp B/P (MAP) Pulse Ox O2 Delivery O2 Flow Rate FiO2 11/22/24 13:00 97.7 63 20 115/90 (98) 100 97.7 11/21/24 20:00 Room Air* 0 21 Intake/Output Intake and Output 11/22/24 07:00 Intake Total 2885 ml Output Total 600 ml Balance 2285 ml Intake Oral 1860 ml IV Total 1025 ml Output Urine Total 600 ml # Voids 1 Exam Alert and awake but appears restless. HEENT pupils equal round react to light. Neck supple no JVD. Heart regular rate and rhythm S1-S2. Lungs fair air movement with poor inspiratory effort no rales wheezes. Abdomen soft nontender positive bowel sounds. Extremities no edema positive pulses. Neurologically no gross focal deficits noted. Medications Current Medications Medications Dose Ordered Sig/Marcy Route Start Time Stop Time Status Last Admin Dose Admin Ondansetron HCl 4 mg Q4HP PRN IV 11/19/24 16:30 Acetaminophen 650 mg Q6HP PRN PO 11/19/24 16:30 11/21/24 00:56 650 MG Nitroglycerin 0.4 mg Q5MINP PRN SL 11/19/24 16:30 Morphine Sulfate 2 mg Q30M PRN IV 11/19/24 16:30 Thiamine HCl 100 mg DAILY PO 11/20/24 10:00 11/22/24 10:07 100 MG Folic Acid 1 mg DAILY PO 11/20/24 10:00 11/22/24 10:07 1 MG Multivitamins 1 tab DAILY PO 11/20/24 10:00 11/22/24 10:07 1 TAB Ceftriaxone Sodium 50 ml @ 100 mls/hr DAILY@09 IV 11/19/24 16:30 11/22/24 09:20 100 MLS/HR Potassium Chloride/Sodium Chloride 1,000 ml @ 75 mls/hr [id number] IV 11/20/24 09:00 11/22/24 00:17 75 MLS/HR Pantoprazole Sodium 40 mg BID IV 11/20/24 22:00 11/22/24 10:07 40 MG Lorazepam 1 mg Q2HP PRN IV 11/20/24 16:15 11/22/24 03:16 1 MG Zolpidem Tartrate 10 mg HS PO 11/21/24 22:00 11/21/24 21:22 10 MG Magnesium Oxide 400 mg BID PO 11/21/24 22:00 11/22/24 10:07 400 MG Chlordiazepoxide HCl 5 mg QID PO 11/22/24 12:00 Gabapentin 300 mg TID PO 11/22/24 14:00 Enoxaparin Sodium 40 mg DAILY SC 11/23/24 10:00 Laboratory Results Laboratory Tests 11/21/24 06:29 11/22/24 05:27 Chemistry Test 11/22/24 05:27 Calcium Level 8.5 mg/dL (8.7-10.4) L Magnesium Level 1.7 mg/dL (1.6-2.6) Coagulation Test 11/22/24 05:27 Prothrombin Time 11.5 sec (9.3-11.8) Prothrombin Time INR 1.09 (0.9-1.15) Urinalysis Test 11/20/24 12:17 Urine Color Yellow (Yellow) Urine Clarity Clear (Clear) Urine pH 6.0 (5.0-9.0) Urine Specific [place] 1.031 (1.001-1.035) Urine Protein 1+ (Negative) H Urine Ketones 1+ (Negative) H Urine Blood Negative /uL (Negative) Urine Nitrite Negative (Negative) Urine Bilirubin 1+ (Negative) Urine Urobilinogen 4 mg/dL (Negative) H Urine Leukocyte Esterase Negative /uL (Negative) Urine RBC 1 /hpf (0 - 3) Urine Microscopic WBC 3 /HPF (0-3) Urine Squamous Epithelial Cells None seen /hpf (<5) Urine Bacteria None seen /hpf (None Seen) Urine Mucus Few (None Seen) Urine Yeast (Budding) Occasional /hpf (None Urine Glucose Normal mg/dL (Normal) Assessment/Plan Assessment/Plan Per nurse sleeping pill he received did not help. Patient did not sleep eval overnight and restless this morning. I will start him on trazodone at night for sleep. I will start him on gabapentin for his neuropathy and alcohol withdrawal. Continue Librium as he is on. We will get tele psych evaluation once he is more stable in the next 24 hours. Otherwise continue to replace electrolytes as needed. Continue rest of supportive care and treatment. Follow clinical management per clinical course. Discussed with the nurse at bedside regarding care plan. Plan discussed with: Patient, Other My Orders Orders - ELIJAH CLAUDIO MD Procedure Category Date Status Time Soc Telemed Psych CONS 11/21/24 Transmitted Consult 15:56 Chlordiazepoxide Hcl PHA 11/22/24 In Process Capsule (Librium Ca 12:00 Gabapentin Capsule PHA 11/22/24 In Process (Neurontin Capsule) 14:00 Bilat Lower Dvt US 11/22/24 Resulted 11:58 Enoxaparin Sodium PHA 11/23/24 In Process (Lovenox) 10:00 Basic Metabolic Panel LAB 11/23/24 Verified 04:00 Problem List: (1) Hallucinations (2) Alcohol abuse (3) Dehydration (4) Neuropathy (5) Anemia Date of Service: Nov 22, 2024 Billing Provider: ELIJAH CLAUDIO MD Common Visit Codes: [id number] INP/OBS CARE(MOD) ELIJAH CLAUDIO MD Nov 22, 2024 13:32
[2024-11-22] MEDS: GABAPENTIN 300 MG CAP PO SCH (14:16)
[2024-11-22] MEDS: POTASSIUM EFFERVESENT TAB 25 MEQ PO ONE (14:31)
--- NOTE | 2024-11-22 17:59 | DVHPN2 ---
Progress Note - Dictate Date Seen: Nov 22, 2024 Medical Necessity Reason Pt with a Central, PICC or Fol: No Subjective Patient complaining of neuropathic type of pain with burning under his feet He has mild pedal edema ; patient is anxious and restless There was no nausea vomiting no hematemesis no bright red blood per rectum or melena Liver enzymes are trending down and lactic acid is resolving vital signs Vital Sign Date Time Temp Pulse Resp B/P (MAP) Pulse Ox O2 Delivery O2 Flow Rate FiO2 11/22/24 17:00 97.9 114 20 130/97 (108) 100 97.9 11/22/24 08:00 Room Air* 0 21 Total Intake and Output 11/21/24 11/21/24 11/22/24 15:00 23:00 07:00 Intake Total 50 ml 1685 ml 1225 ml Output Total 600 ml Balance 50 ml 1085 ml 1225 ml medications Current Medications Medications Dose Ordered Sig/Marcy Route Start Time Stop Time Status Last Admin Dose Admin Ondansetron HCl 4 mg Q4HP PRN IV 11/19/24 16:30 Acetaminophen 650 mg Q6HP PRN PO 11/19/24 16:30 11/22/24 14:16 650 MG Nitroglycerin 0.4 mg Q5MINP PRN SL 11/19/24 16:30 Morphine Sulfate 2 mg Q30M PRN IV 11/19/24 16:30 Thiamine HCl 100 mg DAILY PO 11/20/24 10:00 11/22/24 10:07 100 MG Folic Acid 1 mg DAILY PO 11/20/24 10:00 11/22/24 10:07 1 MG Multivitamins 1 tab DAILY PO 11/20/24 10:00 11/22/24 10:07 1 TAB Ceftriaxone Sodium 50 ml @ 100 mls/hr DAILY@09 IV 11/19/24 16:30 11/22/24 09:20 100 MLS/HR Potassium Chloride/Sodium Chloride 1,000 ml @ 75 mls/hr [id number] IV 11/20/24 09:00 11/22/24 00:17 75 MLS/HR Pantoprazole Sodium 40 mg BID IV 11/20/24 22:00 11/22/24 10:07 40 MG Lorazepam 1 mg Q2HP PRN IV 11/20/24 16:15 11/22/24 03:16 1 MG Zolpidem Tartrate 10 mg HS PO 11/21/24 22:00 11/21/24 21:22 10 MG Magnesium Oxide 400 mg BID PO 11/21/24 22:00 11/22/24 10:07 400 MG Chlordiazepoxide HCl 5 mg QID PO 11/22/24 12:00 11/22/24 14:16 5 MG Gabapentin 300 mg TID PO 11/22/24 14:00 11/22/24 14:16 300 MG Enoxaparin Sodium 40 mg DAILY SC 11/23/24 10:00 Acetaminophen/ Hydrocodone Bitart 1 tab Q4HPRN PRN PO 11/22/24 15:30 objective Alert awake. Oriented to place and person HEENT pupils equal round react to light. Neck supple no JVD. Heart regular rate and rhythm S1-S2. Lungs fair air movement with poor inspiratory effort no rales wheezes. Abdomen soft nontender positive bowel sounds. Extremities no edema positive pulses. Neurologically no gross focal deficits noted. laboratory and microbiology Laboratory Tests 11/22/24 05:27 11/21/24 06:29 Test 11/22/24 05:27 Range/Units Serum Glucose 88 74-106 mg/dL Problems(with codes): (1) Neuropathy (2) Alcohol intoxication (3) Dehydration (4) Alcohol abuse (5) Hypokalemia (6) Elevated LFTs Prognosis Plan Monitor his labs, liver enzymes trending down likely related to alcoholic hepatitis Pain control and vitamin supplementation including thiamine folic acid and vitamin-B ; consider gabapentin I would like to get a hemochromatosis profile on this patient upon discharge Discontinue alcohol ; check PT INR in a.m. 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
[2024-11-23] VITALS (8 sets, daily range): BP systolic 120–132; BP diastolic 76–100; PULSE 107–132; RESP 18–20; TEMP 97.3–98.1; O2SAT 96–100
[2024-11-23] MEDS: ENOXAPARIN SOD 40 MG/0.4 ML SYRINGE SC SCH (10:00)
[2024-11-23 11:19] LABS: Hepatitis A Total Antibody Positive (Negative); Hepatitis B Surface Antigen Negative (Negative); Hepatitis C Antibody Negative (Negative)
--- NOTE | 2024-11-23 13:11 | DVHPN2 ---
Subjective More alert and awake. He refused some of his oral medications. His family is at bedside. Patient sleeping has somewhat improved but sleep cycle is still not optimal. Changes from previous H/P or p: No Changes Genitourinary: Other (Testicular pain left side) Objective Vitals Vital Signs Date Time Temp Pulse Resp B/P (MAP) Pulse Ox O2 Delivery O2 Flow Rate FiO2 11/23/24 08:21 18 Room Air* 0 21 11/23/24 08:00 107 11/23/24 05:00 97.7 120/83 (95) 97 97.7 Intake/Output Intake and Output 11/23/24 07:00 Intake Total 1655 ml Output Total 340 ml Balance 1315 ml Intake Oral 1380 ml IV Total 275 ml Output Urine Total 340 ml # Voids 5 # Bowel Movements 2 Exam Alert and awake but appears restless. HEENT pupils equal round react to light. Neck supple no JVD. Heart regular rate and rhythm S1-S2. Lungs fair air movement with poor inspiratory effort no rales wheezes. Abdomen soft nontender positive bowel sounds. Extremities no edema positive pulses. Neurologically no gross focal deficits noted. Medications Current Medications Medications Dose Ordered Sig/Marcy Route Start Time Stop Time Status Last Admin Dose Admin Ondansetron HCl 4 mg Q4HP PRN IV 11/19/24 16:30 Acetaminophen 650 mg Q6HP PRN PO 11/19/24 16:30 11/22/24 14:16 650 MG Nitroglycerin 0.4 mg Q5MINP PRN SL 11/19/24 16:30 Morphine Sulfate 2 mg Q30M PRN IV 11/19/24 16:30 Thiamine HCl 100 mg DAILY PO 11/20/24 10:00 11/22/24 10:07 100 MG Folic Acid 1 mg DAILY PO 11/20/24 10:00 11/22/24 10:07 1 MG Multivitamins 1 tab DAILY PO 11/20/24 10:00 11/22/24 10:07 1 TAB Ceftriaxone Sodium 50 ml @ 100 mls/hr DAILY@09 IV 11/19/24 16:30 11/23/24 10:13 100 MLS/HR Potassium Chloride/Sodium Chloride 1,000 ml @ 75 mls/hr [id number] IV 11/20/24 09:00 11/23/24 05:53 75 MLS/HR Pantoprazole Sodium 40 mg BID IV 11/20/24 22:00 11/23/24 10:14 40 MG Lorazepam 1 mg Q2HP PRN IV 11/20/24 16:15 11/23/24 03:12 1 MG Magnesium Oxide 400 mg BID PO 11/21/24 22:00 11/22/24 21:27 400 MG Gabapentin 300 mg TID PO 11/22/24 14:00 11/23/24 05:53 300 MG Enoxaparin Sodium 40 mg DAILY SC 11/23/24 10:00 Acetaminophen/ Hydrocodone Bitart 1 tab Q4HPRN PRN PO 11/22/24 15:30 Trazodone HCl 50 mg HS PO 11/23/24 22:00 Lactulose 30 ml BID PO 11/23/24 22:00 Rifaximin 550 mg BID PO 11/23/24 22:00 Chlordiazepoxide HCl 10 mg TID PO 11/23/24 14:00 Laboratory Results Laboratory Tests 11/21/24 06:29 Chemistry Test 11/23/24 12:50 Calcium Level Pending Urinalysis Test 11/20/24 12:17 Urine Color Yellow (Yellow) Urine Clarity Clear (Clear) Urine pH 6.0 (5.0-9.0) Urine Specific [place] 1.031 (1.001-1.035) Urine Protein 1+ (Negative) H Urine Ketones 1+ (Negative) H Urine Blood Negative /uL (Negative) Urine Nitrite Negative (Negative) Urine Bilirubin 1+ (Negative) Urine Urobilinogen 4 mg/dL (Negative) H Urine Leukocyte Esterase Negative /uL (Negative) Urine RBC 1 /hpf (0 - 3) Urine Microscopic WBC 3 /HPF (0-3) Urine Squamous Epithelial Cells None seen /hpf (<5) Urine Bacteria None seen /hpf (None Seen) Urine Mucus Few (None Seen) Urine Yeast (Budding) Occasional /hpf (None Urine Glucose Normal mg/dL (Normal) Assessment/Plan Assessment/Plan Continue trazodone at night for sleep. MARY GRACE Pearl. His ammonia level is mildly elevated therefore we will repeat it. I will start him on rifaximin and lactulose for hepatic encephalopathy. Once his mentation improves more we will have a tele psych evaluation. Per family members were at bedside patient apparently please and hallucinating for about four days prior to admission. Patient has AV alcohol drinking daily. Patient apparently has been complaining of peripheral neuropathy for family for about a month and minimally ambulatory at home. Continue gabapentin for neuropathy. He is encouraged to take oral multivitamins and continue rest of supportive care and treatment as he is on. Further clinical management per clinical course Plan discussed with: Patient, Other My Orders Orders - ELIJAH CLAUDIO MD Procedure Category Date Status Time Hydrocodone-Acet PHA 11/22/24 In Process 5/325mg Tab ([place] 15:30 Trazodone Hcl PHA 11/23/24 In Process (Desyrel) 22:00 Lactulose Oral PHA 11/23/24 In Process 22:00 Rifaximin (Xifaxan) PHA 11/23/24 In Process 22:00 Ammonia LAB 11/23/24 In Process 10:42 Chlordiazepoxide Hcl PHA 11/23/24 In Process Capsule (Librium Ca 14:00 *Consult Dr[address] Maldonado CONS 11/23/24 Transmitted [place] 11:51 Problem List: (1) Hallucinations (2) Hypokalemia (3) Alcohol abuse (4) Dehydration (5) Neuropathy Date of Service: Nov 23, 2024 Billing Provider: ELIJAH CLAUDIO MD Common Visit Codes: [id number] INP/OBS CARE(MOD) ELIJAH CLAUDIO MD Nov 23, 2024 13:11
[2024-11-23 13:21] LABS: Chloride 106 mmol/L (98-107); Potassium 3.6 mmol/L (3.5-5.1); Sodium 140 mmol/L (136-145)
[2024-11-23 13:23] LABS: Anion Gap 8 (5-15); Carbon Dioxide 26 mmol/L (20-31)
[2024-11-23 13:28] LABS: BUN/Creatinine Ratio 11.8 (10.0-20.0); Glucose 86 mg/dL (74-106)
[2024-11-23 13:30] LABS: Blood Urea Nitrogen 6 mg/dL (9-23); Calcium 8.4 mg/dL (8.7-10.4)
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
[2024-11-23] MEDS: LACTULOSE 20Gm/30ML SOLN PO SCH (21:59)
[2024-11-23] MEDS: HYDROcodone-ACET 5/325MG TAB PO PRN (23:37)
[2024-11-24] VITALS (8 sets, daily range): BP systolic 112–138; BP diastolic 81–102; PULSE 106–124; RESP 18–20; TEMP 97.9–98.6; O2SAT 95–100
[2024-11-24] MEDS: POTASSIUM CHLORIDE 20 MEQ, LIDOCAINE 1% (LOCAL ANESTH.) 2 ML in SODIUM CHL 0.9% 100 ML IV ONE (13:19)
--- NOTE | 2024-11-24 13:21 | DVHPN2 ---
Subjective He is more awake and alert. Oriented to place and person. Evaluated by tele psych recommending to continue current gabapentin and Librium. He is out of bed today sitting on bedside commode. Changes from previous H/P or p: No Changes Genitourinary: Other (Testicular pain left side) Objective Vitals Vital Signs Date Time Temp Pulse Resp B/P (MAP) Pulse Ox O2 Delivery O2 Flow Rate FiO2 11/24/24 08:00 124 19 99 Room Air* 0 21 11/24/24 05:00 98.0 137/89 (105) 98.0 Intake/Output Intake and Output 11/24/24 07:00 Intake Total 3275 ml Balance 3275 ml Intake Oral 2000 ml IV Total 1275 ml # Voids 7 # Bowel Movements 4 Exam Comfortable sitting on the commode without distress. Able to communicate more today. HEENT pupils equal round react to light. Neck supple no JVD. Heart regular rate and rhythm S1-S2. Lungs fair air movement with poor inspiratory effort no rales wheezes. Abdomen soft nontender positive bowel sounds. Extremities no edema positive pulses. Neurologically no gross focal deficits noted. Medications Current Medications Medications Dose Ordered Sig/Marcy Route Start Time Stop Time Status Last Admin Dose Admin Ondansetron HCl 4 mg Q4HP PRN IV 11/19/24 16:30 Acetaminophen 650 mg Q6HP PRN PO 11/19/24 16:30 11/22/24 14:16 650 MG Nitroglycerin 0.4 mg Q5MINP PRN SL 11/19/24 16:30 Morphine Sulfate 2 mg Q30M PRN IV 11/19/24 16:30 Thiamine HCl 100 mg DAILY PO 11/20/24 10:00 11/24/24 10:36 100 MG Folic Acid 1 mg DAILY PO 11/20/24 10:00 11/24/24 10:37 1 MG Multivitamins 1 tab DAILY PO 11/20/24 10:00 11/24/24 10:51 1 TAB Ceftriaxone Sodium 50 ml @ 100 mls/hr DAILY@09 IV 11/19/24 16:30 11/24/24 10:35 100 MLS/HR Potassium Chloride/Sodium Chloride 1,000 ml @ 75 mls/hr [id number] IV 11/20/24 09:00 11/24/24 03:30 75 MLS/HR Pantoprazole Sodium 40 mg BID IV 11/20/24 22:00 11/24/24 10:36 40 MG Lorazepam 1 mg Q2HP PRN IV 11/20/24 16:15 11/23/24 03:12 1 MG Magnesium Oxide 400 mg BID PO 11/21/24 22:00 11/24/24 10:37 400 MG Gabapentin 300 mg TID PO 11/22/24 14:00 11/24/24 06:06 300 MG Enoxaparin Sodium 40 mg DAILY SC 11/23/24 10:00 11/24/24 10:36 40 MG Acetaminophen/ Hydrocodone Bitart 1 tab Q4HPRN PRN PO 11/22/24 15:30 11/24/24 05:05 1 TAB Trazodone HCl 50 mg HS PO 11/23/24 22:00 11/23/24 21:29 50 MG Chlordiazepoxide HCl 10 mg TID PO 11/23/24 14:00 11/24/24 06:06 10 MG Lactulose 15 ml DAILY PO 11/25/24 10:00 Laboratory Results Laboratory Tests 11/21/24 06:29 11/23/24 12:50 Urinalysis Test 11/20/24 12:17 Urine Color Yellow (Yellow) Urine Clarity Clear (Clear) Urine pH 6.0 (5.0-9.0) Urine Specific [place] 1.031 (1.001-1.035) Urine Protein 1+ (Negative) H Urine Ketones 1+ (Negative) H Urine Blood Negative /uL (Negative) Urine Nitrite Negative (Negative) Urine Bilirubin 1+ (Negative) Urine Urobilinogen 4 mg/dL (Negative) H Urine Leukocyte Esterase Negative /uL (Negative) Urine RBC 1 /hpf (0 - 3) Urine Microscopic WBC 3 /HPF (0-3) Urine Squamous Epithelial Cells None seen /hpf (<5) Urine Bacteria None seen /hpf (None Seen) Urine Mucus Few (None Seen) Urine Yeast (Budding) Occasional /hpf (None Urine Glucose Normal mg/dL (Normal) Assessment/Plan Assessment/Plan Continue trazodone at night for sleep. Cut down the lactulose to once a day. Ammonia level has normalized. Increase gabapentin to 400 t.i.d.. Continue current Librium. Encouraged activity and ambulation. If he remains stable consider discharge plan to home tomorrow. Meantime social media marketing analyst involved to give him resources for alcohol abstinence and seek help with the AA meetings and rehab programs. Plan discussed with: Patient, Other My Orders Orders - ELIJAH CLAUDIO MD Procedure Category Date Status Time Lactulose Oral PHA 11/25/24 In Process 10:00 Potassium Chloride PHA 11/24/24 In Process (Potassium Chloride). 11:30 Uric Acid LAB 11/24/24 In Process 11:26 Erythrocyte LAB 11/24/24 In Process Sedimentation Rate 11:26 C-Reactive Protein LAB 11/24/24 In Process 11:26 Regular Diet DIET 11/24/24 Transmitted Lunch Gabapentin Capsule PHA 11/24/24 Verified (Neurontin Capsule) 14:00 Date of Service: Nov 24, 2024 Billing Provider: ELIJAH CLAUDIO MD Common Visit Codes: [id number] INP/OBS CARE(MOD) ELIJAH CLAUDIO MD Nov 24, 2024 13:21
[2024-11-24] MEDS ORDERED: GABAPENTIN 300 MG CAP PO SCH (14:00)
[2024-11-24 15:07] LABS: Uric Acid 4.7 mg/dL (3.7-9.2)
--- NOTE | 2024-11-24 20:16 | DVHINCON2 ---
Date of service: Nov 24, [address] Sanchez Reason for Consultation Peripheral neuropathy History of Present Illness Mr. Corbin is right-handed gentleman with a history of anxiety, depression, heavy alcohol consumption, he was admitted to the [facility] on 11/19/2024 with a chief company of alcohol withdrawal/hallucination. At this time, he is alert, oriented to person, place, he knows year, he has good social skills, he is able to maintain good conversation For about three weeks/since the end of 10/2024, he has a progressive numbness, tingling, burning pain in the bilateral soles, and swelling in both feet. The symptoms worse in the evening, with cold condition, and beginning of walking, better during the time. There is no associated urge to move. Gabapentin 300 mg t.i.d. helped, but inadequate Hepatic panel, 12/09/2024: Hep A antibody UDS, 11/20/2024: Benzo Plasma alcohol, 11/19/2024: <3 WBC/HB/PLT/MCV, 11/21/2024: 506/7.7/195/101.3 PT/INR/PTT, 11/22/2024: 11.5/1.09/ BMP, 11/23/2024: Unremarkable TBI/AST/ALT/AP, 11/21/2024: 1.2/128/54/117 Vitamin B12, 11/20/2024: 868 Folic acid, 11/20/2024: 5.96 TSH, 11/20/24: 1.77 CT head, 11/19/2024: 1. No CT evidence of acute intracranial abnormality. 2. Nonacute findings as described above Past Medical History Anxiety, depression, prediabetes, lazy eye Past Surgical History None Family History: Arthritis G8 MOTHER Diabetes mellitus G8 FATHER Family History Diabetes, arthritis, mother has depression anxiety Social History He denies history of smoking or drug abuse, but he has history of heavy alcohol since early 2023 Allergies: Coded Allergies: NO KNOWN ALLERGIES (Unverified , 01/10/10) Home Meds Active Scripts Tramadol Hcl (Tramadol Hcl) 50 Mg Tab, 50 MG PO Q6HP PRN, #30 TAB Prov:GENARO GUNTER MD 11/15/24 Gabapentin (Once-Daily) (Gabapentin) 300 Mg Tab, 300 MG PO TID PRN, #30 TAB Prov:LORETO HICKMANGENARO MD 11/15/24 Current Medications Current Medications Medications (Trade) Dose Ordered Sig/Marcy Route PRN Reason Start Time Stop Time Status Last Admin Trazodone HCl (Desyrel) 50 mg HS PO 11/23/24 22:00 11/23/24 21:29 Lactulose 30 ml BID PO 11/23/24 22:00 11/24/24 11:25 DC 11/24/24 10:36 Rifaximin (Xifaxan) 550 mg BID PO 11/23/24 22:00 11/24/24 11:25 DC 11/24/24 10:36 Lactulose 15 ml DAILY PO 11/25/24 10:00 Gabapentin (Neurontin Capsule) 400 mg TID PO 11/24/24 14:00 Cancel Gabapentin (Neurontin Capsule) 400 mg TID PO 11/24/24 22:00 Review of Systems As above, the other systems are negative Vital Signs Vital Signs Date Time Temp Pulse Resp B/P (MAP) Pulse Ox O2 Delivery O2 Flow Rate FiO2 11/24/24 17:00 98.1 116 20 134/102 (113) 100 98.1 11/24/24 08:00 Room Air* 0 21 Physical Exam GENERAL EXAM: General: the patient is well developed and nourished. No acute distress. HEENT: Normocephalic, neck is supple, no carotid bruits. No mass. RESPIRATORY: Normal respiratory effort with symmetrical lung expansion. Lungs clear to auscultation. CARDIOVASCULAR: Regular rate and rhythm with no murmurs. S1, S2. ABDOMEN: Soft, nontender, normal bowel sound NEUROLOGICAL: MENTAL STATUS: Awake and alert. Oriented to person, place, time and general circumstances. Able to give personal history. SPEECH, LANGUAGE, HIGHER CORTICAL FUNCTION: no aphasia or dysathria. CRANIAL NERVES: #2: Intact visual nunez to confrontation. The optic discs were sharp. #3,4,6: Pupils are equal, round and reactive. EOMs full and conjugate. No nystagmus. #5: Facial sensation intact in all three divisions bilaterally. Mandibular strength intact. #7: Facial muscles symmetrical and strength intact. #8: Hearing grossly normal to voice. #9,10: Uvula and soft palate rise in the midline. Swallow and voice are normal. #11: Trapezius and sternomastoid strength intact bilaterally. #12: Tongue midline. No fasciculations or atrophy. SENSATION: He is sensitive to light touch and pinprick in the feet MOTOR: Normal tone in the upper and lower extremity. Normal muscle bulk. No fasciculations. Tremors in both hands. Muscle strength of the major groups in the upper extremities is 5/5. Muscle strength of the major groups in the lower extremities is 5/5. REFLEXES: Deep tendon reflexes are symmetrical. No pathological reflexes. CEREBELLAR/COORDINATION: Finger to nose is unremarkable bilaterally. GAIT/STATION: deferred. Labs/Diagnostic Data Labs Test 11/24/24 13:14 11/23/24 20:21 11/23/24 12:50 11/23/24 12:30 Range/Units Erythrocyte Sedimentation Rate 9 0-20 mm/hr Uric Acid 4.7 3.7-9.2 mg/dL C-Reactive Protein High Sensitivity 0.11 <1.0 mg/dL Stool Occult Blood Negative Negative Stool Occult Blood Sample #3 Negative Sodium Level 140 136-145 mmol/L Potassium Level 3.6 3.5-5.1 mmol/L Chloride Level 106 98-107 mmol/L Carbon Dioxide Level 26 20-31 mmol/L Anion Gap 8 5-15 Blood Urea Nitrogen 6 L 9-23 mg/dL Creatinine 0.51 L 0.700-1.30 mg/dL Glomerular Filtration Rate Calc 141 >90 mL/min BUN/Creatinine Ratio 11.8 10.0-20.0 Serum Glucose 86 74-106 mg/dL Calcium Level 8.4 L 8.7-10.4 mg/dL Ammonia 11 11-32 umol/L Test 11/22/24 05:27 11/21/24 06:29 11/20/24 16:45 11/20/24 13:55 Range/Units Prothrombin Time 11.5 9.3-11.8 sec Prothrombin Time INR 1.09 0.9-1.15 Magnesium Level 1.7 1.6-2.6 mg/dL Ferritin 750.0 H 22-322 ng/mL Hepatitis A Antibody Total Positive H Negative Hepatitis B Surface Antigen Negative Negative Hepatitis B Surface Antibody Negative Negative Hepatitis B Core Total Antibody Negative Negative Hepatitis C Antibody Negative Negative White Blood Count 5.6 4.4-10.8 10^3/uL Red Blood Count 2.25 L 4.5-5.90 10^6/uL Hemoglobin 7.7 L 13.5-17.5 g/dL Hematocrit 22.8 L 41.0-53.0 % Mean Corpuscular Volume 101.3 H 80.0-100.0 fL Mean Corpuscular Hemoglobin 34.3 H 28.0-32.0 pg Mean Corpuscular Hemoglobin Concent 33.9 32.0-36.0 g/dL Red Cell Distribution Width 21.9 H 11.8-14.3 % Platelet Count 195 140-450 10^3/uL Mean Platelet Volume 9.1 6.9-10.8 fL Neutrophils (%) (Auto) 59.4 37.0-80.0 % Lymphocytes (%) (Auto) 21.9 10.0-50.0 % Monocytes (%) (Auto) 17.3 H 0.0-12.0 % Eosinophils (%) (Auto) 0.8 0.0-7.0 % Basophils (%) (Auto) 0.6 0.0-2.0 % Neutrophils # (Auto) 3.3 1.6-8.6 10 ^3/uL Lymphocytes # (Auto) 1.2 0.4-5.4 10 ^3/uL Monocytes # (Auto) 1.0 0-1.3 10 ^3/uL Eosinophils # (Auto) 0 0-0.8 10 ^3/uL Basophils # (Auto) 0 0-0.2 10 ^3/uL Nucleated Red Blood Cells 17.8 % Total Bilirubin 1.2 H 0.2-1.0 mg/dL Aspartate Amino Transferase (AST) 128 H 13-40 U/L Alanine Aminotransferase (ALT) 54 H 7-40 U/L Alkaline Phosphatase 117 H 46-116 U/L Total Protein 5.4 L 5.7-8.2 g/dL Albumin 3.1 L 3.2-4.8 g/dL Lactic Acid Level 1.0 0.4-2.0 mmol/L Thyroid Stimulating Hormone (TSH) 1.77 0.55-4.78 uIU/mL Test 11/20/24 12:17 11/20/24 07:03 11/19/24 17:03 11/19/24 11:10 Range/Units Urine Color Yellow Yellow Urine Clarity Clear Clear Urine pH 6.0 5.0-9.0 Urine Specific [place] 1.031 1.001-1.035 Urine Protein 1+ H Negative Urine Ketones 1+ H Negative Urine Blood Negative Negative /uL Urine Nitrite Negative Negative Urine Bilirubin 1+ Negative Urine Urobilinogen 4 H Negative mg/dL Urine Leukocyte Esterase Negative Negative /uL Urine RBC 1 0 - 3 /hpf Urine Microscopic WBC 3 0-3 /HPF Urine Squamous Epithelial Cells None seen <5 /hpf Urine Bacteria None seen None Seen /hpf Urine Mucus Few None Seen Urine Yeast (Budding) Occasional None Seen /hpf Urine Glucose Normal Normal mg/dL Urine Opiates Screen Neg NEGATIVE Urine Fentanyl Screen Neg NEGATIVE Urine Barbiturates Screen Neg NEGATIVE Urine Phencyclidine Screen Neg NEGATIVE Urine Amphetamines Screen Neg NEGATIVE Urine Benzodiazepines Screen Pos NEGATIVE Urine Cocaine Screen Neg NEGATIVE Urine Cannabinoids Screen Neg NEGATIVE Iron Level 145 65-175 ug/dL Total Iron Binding Capacity 220 L 250-425 ug/dL Percent Iron Saturation 65.9 H 20-55 % Vitamin B12 Level 868 211-911 pg/mL Folic Acid 5.96 >5.38 ng/mL Plasma/Serum Blood Alcohol < 3.0 <10 mg/dL Differential Total Cells Counted 100.0 100 Neutrophils % (Manual) 59 37.0-80.0 Band Neutrophils % (Manual) 1 Lymphocytes % (Manual) 23 10.0-50.0 Monocytes % (Manual) 17 H 0-12 Eosinophils % (Manual) 0 0-7 Basophils % (Manual) 0 0.0-2.0 Metamyelocytes % (manual) 0 Myelocytes % (Manual) 0 Promyelocytes % (Manual) 0 Blast Cells % (Manual) 0 Reactive Lymphocytes 0 Platelet Estimate Adequate Polychromasia Slight Poikilocytosis (manual) Slight Anisocytosis (manual) Moderate Tear Drop Cells Few Assessment Tingling, numbness, burning pain in the soles Alcoholic polyneuropathy Diabetic polyneuropathy Tremors, hallucination He is alcohol withdrawal syndrome Alcoholism Plan/Recommendation Monitoring Supportive treatment Telemetry Ativan p.r.n. Librium Increase gabapentin to 400 mg t.i.d. and further escalating as needed Foot care Daily foot inspection Soft, wide and protective shoes only Need to quit alcohol completely Further address his polyneuropathy as outpatient Prognosis: poor This medical document was created using an electronic medical record system with [employer] system. Although this document has been carefully reviewed, there may still be some phonetic and typographical errors. These areas are purely typographical due to imperfections of the software programs, and do not reflect any compromise in the patient's medical care. Plan discussed with: Patient, Other ERICA LEE MD Nov 24, 2024 20:16
[2024-11-24] MEDS: GABAPENTIN 400 MG CAP PO SCH (21:26)
--- NOTE | 2024-11-24 22:16 | DVHPN2 ---
Progress Note - Dictate Date Seen: Nov 24, 2024 Medical Necessity Reason Pt with a Central, PICC or Fol: No Subjective Patient's appears slightly better today more awake and alert and cooperative Neurology consult appreciated for his peripheral neuropathy Mild residual withdrawal symptoms There was no nausea vomiting no hematemesis no bright red blood per rectum or melena Liver enzymes are trending down and lactic acid is resolving vital signs Vital Sign Date Time Temp Pulse Resp B/P (MAP) Pulse Ox O2 Delivery O2 Flow Rate FiO2 11/24/24 20:05 Room Air* 0 21 11/24/24 17:00 98.1 116 20 134/102 (113) 100 98.1 Total Intake and Output 11/23/24 11/23/24 11/24/24 15:00 23:00 07:00 Intake Total 800 ml 2475 ml Balance 800 ml 2475 ml medications Current Medications Medications Dose Ordered Sig/Marcy Route Start Time Stop Time Status Last Admin Dose Admin Ondansetron HCl 4 mg Q4HP PRN IV 11/19/24 16:30 Acetaminophen 650 mg Q6HP PRN PO 11/19/24 16:30 11/22/24 14:16 650 MG Nitroglycerin 0.4 mg Q5MINP PRN SL 11/19/24 16:30 Morphine Sulfate 2 mg Q30M PRN IV 11/19/24 16:30 Thiamine HCl 100 mg DAILY PO 11/20/24 10:00 11/24/24 10:36 100 MG Folic Acid 1 mg DAILY PO 11/20/24 10:00 11/24/24 10:37 1 MG Multivitamins 1 tab DAILY PO 11/20/24 10:00 11/24/24 10:51 1 TAB Potassium Chloride/Sodium Chloride 1,000 ml @ 75 mls/hr [id number] IV 11/20/24 09:00 11/24/24 21:28 75 MLS/HR Pantoprazole Sodium 40 mg BID IV 11/20/24 22:00 11/24/24 21:25 40 MG Lorazepam 1 mg Q2HP PRN IV 11/20/24 16:15 11/24/24 20:32 1 MG Magnesium Oxide 400 mg BID PO 11/21/24 22:00 11/24/24 21:26 400 MG Enoxaparin Sodium 40 mg DAILY SC 11/23/24 10:00 11/24/24 10:36 40 MG Acetaminophen/ Hydrocodone Bitart 1 tab Q4HPRN PRN PO 11/22/24 15:30 11/24/24 14:15 1 TAB Trazodone HCl 50 mg HS PO 11/23/24 22:00 11/24/24 21:26 50 MG Chlordiazepoxide HCl 10 mg TID PO 11/23/24 14:00 11/24/24 21:26 10 MG Lactulose 15 ml DAILY PO 11/25/24 10:00 Gabapentin 400 mg TID PO 11/24/24 14:00 Cancel Gabapentin 400 mg TID PO 11/24/24 22:00 11/24/24 21:26 400 MG objective Alert awake. Oriented to place and person HEENT pupils equal round react to light. Neck supple no JVD. Heart regular rate and rhythm S1-S2. Lungs fair air movement with poor inspiratory effort no rales wheezes. Abdomen soft nontender positive bowel sounds. Extremities no edema positive pulses. Neurologically no gross focal deficits noted. 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
[2024-11-25] VITALS (8 sets, daily range): BP systolic 126–144; BP diastolic 82–108; PULSE 99–123; RESP 16–19; TEMP 97.9–98.9; O2SAT 96–100
--- NOTE | 2024-11-25 09:23 | DVHPN2 ---
Progress Note - Dictate Date Seen: Nov 25, 2024 Medical Necessity Reason Pt with a Central, PICC or Fol: No Subjective Mr. Corbin is right-handed gentleman with a history of anxiety, depression, heavy alcohol consumption, he was admitted to the [facility] on 11/19/2024 with a chief company of alcohol withdrawal/hallucination. I have seen and examined the patient, I have talked to his nurse and other medical staff, he is alert, oriented times 2-3, but is confused He reports the pain in the feet is better, especially after gabapentin dosing. Hepatic panel, 12/09/2024: Hep A antibody UDS, 11/20/2024: Benzo Plasma alcohol, 11/19/2024: <3 WBC/HB/PLT/MCV, 11/21/2024: 506/7.7/195/101.3 PT/INR/PTT, 11/22/2024: 11.5/1.09/ BMP, 11/23/2024: Unremarkable TBI/AST/ALT/AP, 11/21/2024: 1.2/128/54/117 Vitamin B12, 11/20/2024: 868 Folic acid, 11/20/2024: 5.96 TSH, 11/20/24: 1.77 CT head, 11/19/2024: 1. No CT evidence of acute intracranial abnormality. 2. Nonacute findings as described above vital signs Vital Sign Date Time Temp Pulse Resp B/P (MAP) Pulse Ox O2 Delivery O2 Flow Rate FiO2 11/25/24 05:00 98.5 116 19 126/90 (102) 99 98.5 11/24/24 20:05 Room Air* 0 21 Total Intake and Output 11/24/24 11/24/24 11/25/24 15:00 23:00 07:00 Intake Total 50 ml 1562 ml 1280 ml Output Total 2 ml Balance 50 ml 1560 ml 1280 ml medications Current Medications Medications Dose Ordered Sig/Marcy Route Start Time Stop Time Status Last Admin Dose Admin Ondansetron HCl 4 mg Q4HP PRN IV 11/19/24 16:30 Acetaminophen 650 mg Q6HP PRN PO 11/19/24 16:30 11/22/24 14:16 650 MG Nitroglycerin 0.4 mg Q5MINP PRN SL 11/19/24 16:30 Morphine Sulfate 2 mg Q30M PRN IV 11/19/24 16:30 Thiamine HCl 100 mg DAILY PO 11/20/24 10:00 11/24/24 10:36 100 MG Folic Acid 1 mg DAILY PO 11/20/24 10:00 11/24/24 10:37 1 MG Multivitamins 1 tab DAILY PO 11/20/24 10:00 11/24/24 10:51 1 TAB Potassium Chloride/Sodium Chloride 1,000 ml @ 75 mls/hr [id number] IV 11/20/24 09:00 11/24/24 21:28 75 MLS/HR Pantoprazole Sodium 40 mg BID IV 11/20/24 22:00 11/24/24 21:25 40 MG Lorazepam 1 mg Q2HP PRN IV 11/20/24 16:15 11/25/24 05:01 1 MG Magnesium Oxide 400 mg BID PO 11/21/24 22:00 11/24/24 21:26 400 MG Enoxaparin Sodium 40 mg DAILY SC 11/23/24 10:00 11/24/24 10:36 40 MG Acetaminophen/ Hydrocodone Bitart 1 tab Q4HPRN PRN PO 11/22/24 15:30 11/24/24 14:15 1 TAB Trazodone HCl 50 mg HS PO 11/23/24 22:00 11/24/24 21:26 50 MG Chlordiazepoxide HCl 10 mg TID PO 11/23/24 14:00 11/25/24 06:32 10 MG Lactulose 15 ml DAILY PO 11/25/24 10:00 Gabapentin 400 mg TID PO 11/24/24 14:00 Cancel Gabapentin 400 mg TID PO 11/24/24 22:00 11/25/24 06:32 400 MG objective General: the patient is well developed and nourished. No acute distress. MENTAL STATUS: Subjective SPEECH, LANGUAGE, HIGHER CORTICAL FUNCTION: no aphasia or dysathria. CRANIAL NERVES: Pupils are equal, round and reactive. EOMs full and conjugate. No nystagmus. Facial sensation intact in all three divisions bilaterally. Mandibular strength intact. Facial muscles symmetrical and strength intact. SENSATION: He is sensitive to light touch and pinprick in the feet MOTOR: Normal tone in the upper and lower extremity. Normal muscle bulk. No fasciculations. Tremors in both hands. Muscle strength of the major groups in the extremities is 5/5. REFLEXES: Deep tendon reflexes are symmetrical. No pathological reflexes. CEREBELLAR/COORDINATION: Finger to nose is unremarkable bilaterally. GAIT/STATION: deferred laboratory and microbiology Laboratory Tests 11/23/24 12:50 11/21/24 06:29 Test 11/23/24 12:50 Range/Units Serum Glucose 86 74-106 mg/dL Problem List Tingling, numbness, burning pain in the soles Alcoholic polyneuropathy Diabetic polyneuropathy Tremors, hallucination He is alcohol withdrawal syndrome Alcoholism Assessment/Plan Monitoring Supportive treatment Telemetry Ativan p.r.n. Librium Gabapentin to 400 mg t.i.d. and further escalating as needed Foot care Daily foot inspection Soft, wide and protective shoes only Need to quit alcohol completely Further address his polyneuropathy as outpatient This medical document was created using an electronic medical record system with [employer] dictation system. Although this document has been carefully reviewed, there may still be some phonetic and typographical errors. These areas are purely typographical due to imperfections of the software programs, and do not reflect any compromise in the patient's medical care. Prognosis poor Dietary Evaluation Review Comments: 1) Initiate Ensure High Protein qd 2) Encourage optimal PO intake 3) Follow-up with neuropathy and hematology 4) Follow-up with social worker palliative care r/t ETOH abuse 5) Continue to monitor I&O, labs, and skin integrity Expected Outcomes/Goals: 1) appetite and labs to improve 2) f/u in 3-5 days Plan discussed with: Other ERICA LEE MD Nov 25, 2024 09:23
[2024-11-25] MEDS: LACTULOSE 20Gm/30ML SOLN PO SCH (10:22)
[2024-11-25] MEDS: HALOPERIDOL LACTATE 5 MG/ML INJ VIAL IV PRN (12:36)
--- NOTE | 2024-11-25 15:39 | DVHPN2 ---
Subjective Patient denies any symptoms Reviewed: Care Plan, H&P, Labs, Medications Changes from previous H/P or p: No Changes General: Per HPI Genitourinary: Other (Testicular pain left side) Objective Vitals Vital Signs Date Time Temp Pulse Resp B/P (MAP) Pulse Ox O2 Delivery O2 Flow Rate FiO2 11/25/24 08:45 123 11/25/24 08:00 16 96 Room Air* 0 21 11/25/24 05:00 98.5 126/90 (102) 98.5 Intake/Output Intake and Output 11/25/24 07:00 Intake Total 2892 ml Output Total 2 ml Balance 2890 ml Intake Oral 2730 ml IV Total 162 ml Stool Total 2 ml # Voids 8 # Bowel Movements 4 General Appearance: Alert, Cooperative, mild distress HEENT: Atraumatic, PERRLA Cardiovascular: Normal S1, Normal S2 Musculoskeletal: Normal sensory function, Normal motor function Extremities: No clubbing Neuro: Normal speech Skin: Dry, Intact Psych/Mental Status: Mental status NL, Mood NL Medications Current Medications Medications Dose Ordered Sig/Marcy Route Start Time Stop Time Status Last Admin Dose Admin Ondansetron HCl 4 mg Q4HP PRN IV 11/19/24 16:30 Acetaminophen 650 mg Q6HP PRN PO 11/19/24 16:30 11/22/24 14:16 650 MG Nitroglycerin 0.4 mg Q5MINP PRN SL 11/19/24 16:30 Morphine Sulfate 2 mg Q30M PRN IV 11/19/24 16:30 Thiamine HCl 100 mg DAILY PO 11/20/24 10:00 11/25/24 10:22 100 MG Folic Acid 1 mg DAILY PO 11/20/24 10:00 11/25/24 10:22 1 MG Multivitamins 1 tab DAILY PO 11/20/24 10:00 11/25/24 10:22 1 TAB Potassium Chloride/Sodium Chloride 1,000 ml @ 75 mls/hr [id number] IV 11/20/24 09:00 11/24/24 21:28 75 MLS/HR Pantoprazole Sodium 40 mg BID IV 11/20/24 22:00 11/25/24 10:23 40 MG Lorazepam 1 mg Q2HP PRN IV 11/20/24 16:15 11/25/24 05:01 1 MG Magnesium Oxide 400 mg BID PO 11/21/24 22:00 11/25/24 10:22 400 MG Enoxaparin Sodium 40 mg DAILY SC 11/23/24 10:00 11/25/24 10:23 40 MG Acetaminophen/ Hydrocodone Bitart 1 tab Q4HPRN PRN PO 11/22/24 15:30 11/24/24 14:15 1 TAB Trazodone HCl 50 mg HS PO 11/23/24 22:00 11/24/24 21:26 50 MG Chlordiazepoxide HCl 10 mg TID PO 11/23/24 14:00 11/25/24 06:32 10 MG Lactulose 15 ml DAILY PO 11/25/24 10:00 11/25/24 10:22 15 ML Gabapentin 400 mg TID PO 11/24/24 14:00 Cancel Gabapentin 400 mg TID PO 11/24/24 22:00 11/25/24 06:32 400 MG Haloperidol Lactate 2.5 mg Q8HP PRN IV 11/25/24 12:00 11/25/24 12:36 2.5 MG Laboratory Results Laboratory Tests 11/21/24 06:29 11/23/24 12:50 Urinalysis Test 11/20/24 12:17 Urine Color Yellow (Yellow) Urine Clarity Clear (Clear) Urine pH 6.0 (5.0-9.0) Urine Specific [place] 1.031 (1.001-1.035) Urine Protein 1+ (Negative) H Urine Ketones 1+ (Negative) H Urine Blood Negative /uL (Negative) Urine Nitrite Negative (Negative) Urine Bilirubin 1+ (Negative) Urine Urobilinogen 4 mg/dL (Negative) H Urine Leukocyte Esterase Negative /uL (Negative) Urine RBC 1 /hpf (0 - 3) Urine Microscopic WBC 3 /HPF (0-3) Urine Squamous Epithelial Cells None seen /hpf (<5) Urine Bacteria None seen /hpf (None Seen) Urine Mucus Few (None Seen) Urine Yeast (Budding) Occasional /hpf (None Urine Glucose Normal mg/dL (Normal) Labs and/or images reviewed: Labs reviewed by me, Image(s) reviewed by me Assessment/Plan Assessment/Plan Impression: -acute alcohol withdrawal with hallucinations -normocytic anemia Plan: -continue Librium per [facility] protocol -patient had exacerbation of hallucinations and delirium. Add Haldol 2.5 mg IV every 8 hours as needed -repeat CBC, CMP -IV hydration -continue bedside sitter Total time spent with patient discussing and formulating plan of care: 35 minutes. This medical document was created using an electronic medical record system with [employer] dictation system. Although this document has been carefully reviewed, there may still be some phonetic and typographical errors. These areas are purely typographical due to imperfections of the software programs, and do not reflect any compromise in the patient's medical care. Plan discussed with: Patient, Other (Rn) My Orders Orders - LEROY SALAZAR NP Procedure Category Date Status Time Haloperidol Lactate PHA 11/25/24 In Process Injection (Haldol) 12:00 Date of Service: Nov 25, 2024 Billing Provider: LEROY SALAZAR NP Common Visit Codes: [id number] INP/OBS CARE(HIGH) LEROY SALAZAR NP Nov 25, 2024 15:39
[2024-11-25 16:15] LABS: Hematocrit 24.3 % (41.0-53.0); Hemoglobin 7.8 g/dL (13.5-17.5); Mean Corpuscular Hemoglobin 33.3 pg (28.0-32.0); Mean Corpuscular Volume 104.0 fL (80.0-100.0); Nucleated Red Blood Cells % 0.2 %
[2024-11-25 16:33] LABS: Alanine Aminotransferase 34 U/L (7-40); Albumin 3.0 g/dL (3.2-4.8); Alkaline Phosphatase 84 U/L (46-116); Anion Gap 9 (5-15); BUN/Creatinine Ratio 10.8 (10.0-20.0); Bilirubin, Total 0.9 mg/dL (0.2-1.0); Blood Urea Nitrogen 7 mg/dL (9-23); Calcium 9.0 mg/dL (8.7-10.4); Carbon Dioxide 21 mmol/L (20-31); Chloride 111 mmol/L (98-107); Glucose 88 mg/dL (74-106); Potassium 4.1 mmol/L (3.5-5.1); Sodium 141 mmol/L (136-145); Total Protein 5.0 g/dL (5.7-8.2)
--- NOTE | 2024-11-25 17:04 | DVHPN2 ---
Progress Note - Dictate Date Seen: Nov 25, 2024 Medical Necessity Reason Pt with a Central, PICC or Fol: No Subjective Patient's appears slightly better today more awake and alert and cooperative Neurology consult appreciated for his peripheral neuropathy Mild residual withdrawal symptoms; still slightly altered There was no nausea vomiting no hematemesis no bright red blood per rectum or melena Liver enzymes are trending down and lactic acid is resolving vital signs Vital Sign Date Time Temp Pulse Resp B/P (MAP) Pulse Ox O2 Delivery O2 Flow Rate FiO2 11/25/24 13:00 98.1 99 17 129/82 (98) 98 98.1 11/25/24 08:00 Room Air* 0 21 Total Intake and Output 11/24/24 11/24/24 11/25/24 15:00 23:00 07:00 Intake Total 50 ml 1562 ml 1280 ml Output Total 2 ml Balance 50 ml 1560 ml 1280 ml medications Current Medications Medications Dose Ordered Sig/Marcy Route Start Time Stop Time Status Last Admin Dose Admin Ondansetron HCl 4 mg Q4HP PRN IV 11/19/24 16:30 Acetaminophen 650 mg Q6HP PRN PO 11/19/24 16:30 11/22/24 14:16 650 MG Nitroglycerin 0.4 mg Q5MINP PRN SL 11/19/24 16:30 Morphine Sulfate 2 mg Q30M PRN IV 11/19/24 16:30 Thiamine HCl 100 mg DAILY PO 11/20/24 10:00 11/25/24 10:22 100 MG Folic Acid 1 mg DAILY PO 11/20/24 10:00 11/25/24 10:22 1 MG Multivitamins 1 tab DAILY PO 11/20/24 10:00 11/25/24 10:22 1 TAB Potassium Chloride/Sodium Chloride 1,000 ml @ 75 mls/hr [id number] IV 11/20/24 09:00 11/24/24 21:28 75 MLS/HR Pantoprazole Sodium 40 mg BID IV 11/20/24 22:00 11/25/24 10:23 40 MG Lorazepam 1 mg Q2HP PRN IV 11/20/24 16:15 11/25/24 05:01 1 MG Magnesium Oxide 400 mg BID PO 11/21/24 22:00 11/25/24 10:22 400 MG Enoxaparin Sodium 40 mg DAILY SC 11/23/24 10:00 11/25/24 10:23 40 MG Acetaminophen/ Hydrocodone Bitart 1 tab Q4HPRN PRN PO 11/22/24 15:30 11/24/24 14:15 1 TAB Trazodone HCl 50 mg HS PO 11/23/24 22:00 11/24/24 21:26 50 MG Chlordiazepoxide HCl 10 mg TID PO 11/23/24 14:00 11/25/24 06:32 10 MG Lactulose 15 ml DAILY PO 11/25/24 10:00 11/25/24 10:22 15 ML Gabapentin 400 mg TID PO 11/24/24 14:00 Cancel Gabapentin 400 mg TID PO 11/24/24 22:00 11/25/24 06:32 400 MG Haloperidol Lactate 2.5 mg Q8HP PRN IV 11/25/24 12:00 11/25/24 12:36 2.5 MG objective Alert awake. Oriented to place and person HEENT pupils equal round react to light. Neck supple no JVD. Heart regular rate and rhythm S1-S2. Lungs fair air movement with poor inspiratory effort no rales wheezes. Abdomen soft nontender positive bowel sounds. Extremities no edema positive pulses. Neurologically no gross focal deficits noted. laboratory and microbiology Laboratory Tests 11/25/24 15:56 Test 11/25/24 15:56 Range/Units Serum Glucose 88 74-106 mg/dL Problems(with codes): (1) Neuropathy (2) Alcohol intoxication (3) Dehydration (4) Alcohol abuse (5) Hypokalemia (6) Elevated LFTs (7) Hallucinations Prognosis Plan Patient has been counseled to strictly discontinue alcohol and substance abuse Consider psych evaluation for his hallucinations He can follow up with his PCP and get referral to my office as an outpatient for ongoing management and observation for his underlying liver disease mechanical maintenance worker consult for possible alcohol rehab resources Dietary Evaluation Review Comments: 1) Initiate Ensure High Protein qd 2) Encourage optimal PO intake 3) Follow-up with neuropathy and hematology 4) Follow-up with medical social worker r/t ETOH abuse 5) Continue to monitor I&O, labs, and skin integrity Expected Outcomes/Goals: 1) appetite and labs to improve 2) f/u in 3-5 days Plan discussed with: Other (Dr [place]) RONALDO ERNANDEZ MD Nov 25, 2024 17:04
[2024-11-26 01:00] VITALS: BP 132/99; PULSE 102; RESP 18; TEMP 98.3; O2SAT 98
[2024-11-26 05:00] VITALS: BP 133/91; PULSE 108; RESP 18; TEMP 98.7; O2SAT 100
[2024-11-26 08:00] VITALS: PULSE 106; PULSE 120; RESP 18; O2SAT 98
[2024-11-26 09:00] VITALS: BP 137/101; PULSE 106; RESP 18; TEMP 96.9; O2SAT 100
[2024-11-26] MEDS ORDERED: THIA100T10 PO (10:51)
[2024-11-26] MEDS ORDERED: FERR-7 PO (10:51)
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
== END 2024-11-26 12:50 | disposition home or self-care (01) | DRG 48 ==
LOC: EDBD 10:59 → ER 10:59 → OVERFLOW 16:19 → TELE-CENTR 11-20 18:00
PROVIDERS: ADMIT Nurse Practitioner Acute Care; ATTEND Nurse Practitioner Acute Care
DX: G62.1 Alcoholic polyneuropathy (principal); F10.231 Alcohol dependence with withdrawal delirium; E87.20 Acidosis, unspecified; E11.42 Type 2 diabetes mellitus with diabetic polyneuropathy; D64.9 Anemia, unspecified; E80.6 Other disorders of bilirubin metabolism; E83.42 Hypomagnesemia; F10.251 Alcohol dependence with alcohol-induced psychotic disorder with hallucinations; F32.A Depression, unspecified; R79.89 Other specified abnormal findings of blood chemistry; N50.812 Left testicular pain; E87.6 Hypokalemia; F41.9 Anxiety disorder, unspecified; Z82.61 Family history of arthritis; Z81.8 Family history of other mental and behavioral disorders; Z83.3 Family history of diabetes mellitus
CPT/HCPCS: 36415; 70450; 71045; 74176; 76870; 80048; 80053; 80307; 80320; 81001; 82140; 82270; 82607; 82728; 82746; 83540; 83550; 83605; 83735; 84132; 84443; 84550; 85007; 85025; 85027; 85610; 85652; 86141; 86704; 86706; 86708; 86803; 87340; 93005; 93970; 96361; 96365; 97110; 97116; G0378; J2003; J2470